=== PATIENT | male | born 1975 | race Caucasian/White ===

== ENCOUNTER 2017-03-10 18:33 | Emergency (ER) | payer MEDICARE, MEDICAID ==
[2017-03-10] MEDS ORDERED: Morphine Sulfate 2 MG/ML SYRINGE ONE ×2 (19:01→22:24)
[2017-03-10] MEDS ORDERED: Fentanyl 100 MCG/2 ML VIAL ONE (19:23)
[2017-03-10 20:26] LABS: #Lymphocytes 2.6 thou/uL (1.20-3.40); #Monocytes 1.5 thou/uL (0.11-0.59); #Neutrophils 6.4 thou/uL (1.40-6.50); %Basophils 0.4 % (0.0-1.0); %Eosinophils 0.3 % (0.0-10.0); %Lymphocytes 24.4 % (21.0-51.0); %Monocytes 14.4 % (0.0-10.0); Hematocrit 44.5 % (42.0-52.0); Mean Platelet Volume 9.4 fL (7.4-10.4); White Blood Cell (WBC) Count 10.5 thou/uL (4.8-10.8)
[2017-03-10 20:40] LABS: Bilirubin Negative (Negative); Blood, Urine Large (Negative); Glucose, Urine (Dipstick) Negative (Negative); Ketone, Urine Trace mg/dL (Negative); Nitrite Negative (Negative); Protein, Urine (Dipstick) 100 mg/dL (Neg-Trace)
[2017-03-10 20:41] LABS: Bacteria/HPF None Seen HPF (None Seen); Hyaline Casts/LPF 4-6 HYALINE CAST LPF (0-3 Hyaline); RBC/HPF GREATER THAN 50-TNTC HPF (0-3); Squamous Epithelial 0-3 HPF (0-3)
[2017-03-10 20:51] LABS: Oval Fat Bodies/HPF None Seen HPF (None Seen); Renal Epithelial 0-3 HPF (0-3); Sperm/HPF None Seen HPF (None Seen); Transitional Epithelial NONE SEEN HPF (0-3); Trichomonas/HPF None Seen HPF (None Seen); Yeast-All Forms None Seen HPF (None Seen)
[2017-03-10 21:01] LABS: ALT (SGPT) 16 U/L (8-55); AST (SGOT) 28 U/L (5-34); Alkaline Phosphatase 47 U/L (40-150); Anion Gap 14 mmol/L (10-20); BUN (Urea Nitrogen) 16 mg/dL (8.9-20.6); Bilirubin, Total 0.4 mg/dL (0.2-1.2); CK (CPK) 379 U/L (30-200); Calc. Creatinine Clearance 0 mL/min (70-130); Calcium 9.5 mg/dL (7.8-10.44); Carbon Dioxide 28 mmol/L (22-29); Chloride 101 mmol/L (98-107); Estimated GFR-MDRD Greater than 90; Globulin 3.1 g/dL (2.4-3.5); Lipase 36 U/L (8-78); Protein, Total 6.9 g/dL (6.0-8.3)
[2017-03-10] MEDS ORDERED: cefTRIAXone\\ROCEPHIN 1 GM VIAL ONE (22:36)
[2017-03-10] MEDS ORDERED: Sodium Chloride 0.9% 100 ML ONE (22:36)
--- OUTSIDE RECORDS SUMMARY | 2017-03-16 10:15 | XMS | Clinical Summary ---
:1975 Author Organization [facility] Address [address] [place] [address] Phone Care Team Providers Name Role Phone , Primary Care Provider Unavailable Allergies Not on File Current Medications Not on file Active Problems Not on file Social History Tobacco Use Types Packs/Day Years Used Date Never Assessed Sex Assigned at Date Recorded Not on file Last Filed Vital Signs Not on file Plan of Treatment Not on file Results Not on filefrom Last 3 Months
== END 2017-03-11 00:30 | disposition home or self-care (01) ==
LOC: ERS 18:33
DX: N39.0 Urinary tract infection, site not specified (principal); R19.09 Other intra-abdominal and pelvic swelling, mass and lump; F41.9 Anxiety disorder, unspecified; K59.00 Constipation, unspecified; M81.0 Age-related osteoporosis without current pathological fracture; L30.9 Dermatitis, unspecified; G80.9 Cerebral palsy, unspecified; Z79.899 Other long term (current) drug therapy
CPT/HCPCS: 80053; 81003; 81015; 82550; 83605; 83690; 85025; 87086; 93005; 96361; 96365; 96375; 96376; J0696; J2270; J3010; J7050

== ENCOUNTER 2017-05-04 06:51 | Day surgery (SDC) | payer MEDICARE, MEDICAID ==
[2017-05-03 14:46] VITALS: BMI 23.3
[2017-05-04] MEDS ORDERED: Ketorolac Tromethamine 30 MG/ML VIAL ONE (08:19)
[2017-05-04 09:10] LABS: #Eosinphils 0.2 thou/uL (0.0-0.7); #Lymphocytes 2.4 thou/uL (1.20-3.40); #Monocytes 0.7 thou/uL (0.11-0.59); #Neutrophils 2.1 thou/uL (1.40-6.50); %Basophils 0.6 % (0.0-1.0); %Lymphocytes 43.5 % (21.0-51.0); %Monocytes 12.8 % (0.0-10.0); Hematocrit 44.5 % (42.0-52.0); White Blood Cell (WBC) Count 5.4 thou/uL (4.8-10.8)
[2017-05-04 09:33] LABS: Anion Gap 9 mmol/L (10-20); BUN (Urea Nitrogen) 10 mg/dL (8.9-20.6); Calc. Creatinine Clearance 131 mL/min (70-130); Calcium 9.2 mg/dL (7.8-10.44); Carbon Dioxide 28 mmol/L (22-29); Chloride 104 mmol/L (98-107); Estimated GFR-MDRD Greater than 90
[2017-05-04] MEDS ORDERED: CEFAZOLIN/Water 2 GM/20 ML SYRINGE ONE (09:37)
[2017-05-04] MEDS ORDERED: Bupivacaine/Epinephrine 0.25% 30 ML VIAL ONE (10:08)
[2017-05-04] MEDS ORDERED: Fentanyl 100 MCG/2 ML VIAL ONE ×2 (10:34→13:37)
[2017-05-04] MEDS ORDERED: Midazolam HCl 2 mg/2 ml Vial ONE (10:51)
[2017-05-04] MEDS ORDERED: Levofloxacin 500 mg/D5W 100 ml Premix Bag ONE (11:12)
[2017-05-04] MEDS ORDERED: Ondansetron HCl/PF 4 MG/2 ML Vial ONE (16:15)
[2017-05-04] MEDS ORDERED: Glycopyrrolate 0.2 MG/ML 5 ML SYRINGE ONE (16:15)
[2017-05-04] MEDS ORDERED: Lidocaine 1% PF 5 ML VIAL ONE (16:15)
[2017-05-04] MEDS ORDERED: ePHEDrine/0.9% NaCl/PF SYRINGE 50 mg/10 ml ONE (16:15)
[2017-05-04] MEDS ORDERED: Propofol 200 MG/20 ML VIAL ONE (16:15)
[2017-05-04] MEDS ORDERED: PHENYLEPHRINE-NS 100 MCG/ML 10 ML SYRINGE ONE (16:15)
--- NOTE | 2017-05-04 20:02 | OP ---
DATE OF PROCEDURE: 05/04/2017 PREOPERATIVE DIAGNOSIS: Bilateral inguinal hernia. POSTOPERATIVE DIAGNOSIS: Bilateral inguinal hernia. OPERATION PERFORMED: Open bilateral direct inguinal hernia repair with large mesh patch and plug. SURGEON: Berhane Middleton M.D. ANESTHESIA: General endotracheal. INDICATIONS: The patient is a 41-year-old white male with severe mental retardation. He was recogni zed to have bilateral inguinal hernias and these are felt to be symptomatic. He was taken to the ope rating room at this time for repair. DESCRIPTION OF OPERATION: Informed consent was obtained from his mother. He was taken to the operat ing room where general endotracheal anesthesia was obtained with the patient in supine position. Vamshi ateral lower abdomen and groin were prepped with ChloraPrep and draped in sterile fashion. Local ane sthetic was infiltrated using 0.25% Marcaine with epinephrine. Oblique right inguinal incision was c reated and dissection was carried through skin, subcutaneous tissue down to the fascia. This was ope jose parallel to its fibers so as to open the external ring. Obvious medial bulge was identified cons istent with a direct inguinal hernia. The cord was inspected and there was found to be no evidence o f an indirect inguinal hernia. The hernia was dissected at its base and circumscribed with electroca utery. A large mesh plug was obtained and the apex secured to the apex of the hernia sac and the com plex was inverted in the preperitoneal space. The mesh was secured in place with several interrupted sutures of 2-0 Vicryl and imbricating sutures were placed. Mesh patch was obtained, trimmed was corrie ropriate size, and placed within the floor of the inguinal canal. This was then secured in place wit h several interrupted sutures of 2-0 Vicryl. The fascia was closed with 3-0 Vicryl, the remainder of the wound closed in layers with 3-0 and 4-0 Monocryl. Dermabond was placed externally. Attention was turned to the left side. A mirror image incision and dissection was carried out. The patient had identical findings on the left as on the right. A repair was carried out in the same fas hion using the same mesh and same sutures. The wound was then closed in similar fashion as well. De rmabond was again placed externally. There were no complications. Blood loss was negligible. The p atient tolerated the procedure well and was taken to recovery room in stable condition.
== END 2017-05-04 15:50 | disposition home or self-care (01) ==
LOC: SDC 06:51
PROVIDERS: ATTEND Specialist
PROC: 0YUA0JZ Supplement Bilateral Inguinal Region with Synthetic Substitute, Open Approach (ICD-10-PCS; principal; 2017-05-04)
DX: K40.20 Bilateral inguinal hernia, without obstruction or gangrene, not specified as recurrent (principal); F73 Profound intellectual disabilities; F50.89 Other specified eating disorder; G80.0 Spastic quadriplegic cerebral palsy; G40.909 Epilepsy, unspecified, not intractable, without status epilepticus; G47.33 Obstructive sleep apnea (adult) (pediatric); H47.619 Cortical blindness, unspecified side of brain; K59.09 Other constipation; K11.7 Disturbances of salivary secretion; M85.80 Other specified disorders of bone density and structure, unspecified site; R13.12 Dysphagia, oropharyngeal phase; R47.9 Unspecified speech disturbances; Z88.1 Allergy status to other antibiotic agents; Z79.899 Other long term (current) drug therapy; Z96.22 Myringotomy tube(s) status; Z96.89 Presence of other specified functional implants; Z98.890 Other specified postprocedural states; Z83.3 Family history of diabetes mellitus; Z82.49 Family history of ischemic heart disease and other diseases of the circulatory system
CPT/HCPCS: 80048; 85025; 96374; J0131; J1885; J1956; J2001; J2250; J2405; J2704; J3010

== ENCOUNTER 2017-05-05 21:04 | Inpatient (IN) | payer MEDICARE, MEDICAID ==
[2017-05-05] MEDS ORDERED: Azithromycin 500 MG VIAL ONE (21:50)
--- NOTE | 2017-05-05 22:20 | RAD ---
AP VIEW CHEST 05/05/17 HISTORY: Fever. Recurrent pneumonia. AP view chest is obtained. There appears to be a vagal stimulator in the left neck. Patchy areas of density seen in the left lung base concerning for an area of left lower lobe pneumoni a. The radiograph demonstrates suboptimal inspiratory effort. IMPRESSION: Area of patchy density possibly in the left lung base concerning for an area of left lower lobe pneum onia. POS: [facility]
[2017-05-05 22:29] LABS: Band 6 % (5-11); Hematocrit 43.3 % (42.0-52.0); Mean Platelet Volume 7.7 fL (7.4-10.4); Neutrophil 48 % (42-75); Red Blood Cell (RBC) Count 4.32 mill/uL (4.70-6.10); White Blood Cell (WBC) Count 8.5 thou/uL (4.8-10.8)
[2017-05-05 22:33] LABS: Lactic Acid - Sepsis 1.2 mmol/L (0.5-2.2)
[2017-05-05 22:38] LABS: ALT (SGPT) 13 U/L (8-55); AST (SGOT) 20 U/L (5-34); Alkaline Phosphatase 48 U/L (40-150); Anion Gap 9 mmol/L (10-20); BUN (Urea Nitrogen) 9 mg/dL (8.9-20.6); Bilirubin, Total 0.5 mg/dL (0.2-1.2); Calc. Creatinine Clearance 0 mL/min (70-130); Calcium 9.2 mg/dL (7.8-10.44); Carbon Dioxide 26 mmol/L (22-29); Chloride 105 mmol/L (98-107); Estimated GFR-MDRD Greater than 90; Globulin 2.9 g/dL (2.4-3.5); Protein, Total 6.4 g/dL (6.0-8.3)
[2017-05-05] MEDS ORDERED: Acetaminophen/Codeine 30-300mg Tablet ONE (23:22)
[2017-05-05] MEDS ORDERED: Ketorolac Tromethamine 30 MG/ML VIAL ONE (23:33)
[2017-05-06] MEDS ORDERED: Acetaminophen 325 MG TAB PO PRN (00:49)
[2017-05-06] MEDS ORDERED: Ondansetron ODT 4 MG TAB SL PRN (00:49)
[2017-05-06] MEDS ORDERED: Sodium Chloride 0.9% 1,000 ML IV SCH (00:49)
[2017-05-06] MEDS ORDERED: Ondansetron HCl/PF 4 MG/2 ML Vial IVP PRN ×2 (00:49→02:05)
[2017-05-06] MEDS ORDERED: Piperacillin/Tazobactam 3.375 GM in Sodium Chloride 0.9% 100 ML IVPB SCH (02:00)
[2017-05-06] MEDS ORDERED: Ondansetron ODT 4 MG TAB PO PRN (02:05)
[2017-05-06] MEDS ORDERED: Diabetic Tussin 200 MG/10 ML UDCUP PER TUBE PRN (02:05)
[2017-05-06] MEDS ORDERED: Diazepam 2.5 MG GEL PR PRN (02:05)
[2017-05-06] MEDS: Sodium Chloride 0.9% 1,000 ML IV SCH ×3 (03:25→22:05)
--- NOTE | 2017-05-06 04:53 | HP ---
PRIMARY CARE PHYSICIAN: Dr. Wright at [facility]. CHIEF COMPLAINT: Fever. HISTORY OF PRESENT ILLNESS: This is a 41-year-old male discharged from [facility] status post bilateral inguinal hernia repair on 05/04/2017. The patient was apparentl y sent back to [facility] developing a fever and cough. The patient was evaluated at [facility] in [place] with chest imaging concerning for bilateral pneumonia. The patient was noted with fever up to 101 degrees Fahrenheit and apparently hypoxic. The patient received IV Torado l, vancomycin, azithromycin, and intravenous normal saline. The patient was transferred to [facility] for further evaluation. History is obtained after review of the electronic medical record, ER reports as well as discussions with the patient's caregiver at the bedside as monie ent is nonverbal with severe cerebral palsy. PAST MEDICAL HISTORY: 1. Cerebral palsy. 2. Blindness. 3. Quadriparesis. 4. Chronic constipation. 5. Seizure disorder. 6. Gastroparesis. 7. Oropharyngeal dysphagia, status post PEG tube placement. 8. Status post bowel and bladder incontinence. 9. History of recurrent pneumonia. PAST SURGICAL HISTORY: 1. Status post PEG tube placement. 2. Status post bilateral inguinal hernia repair. CURRENT HOME MEDICATIONS: Based on review of the electronic medical records: 1. Dulcolax 5 mL per rectum every 3 days p.r.n. 2. Calcium carbonate 1500 mg per PEG tube b.i.d. 3. Vitamin D3 1000 units per PEG tube daily. 4. Clobazam 20 mg per PEG tube b.i.d. 5. Diazepam 15 mg per rectum p.r.n. seizures. 6. Keppra 1750 mg per PEG tube b.i.d. 7. Metoprolol tartrate 25 mg per PEG tube b.i.d. 8. Protonix 40 mg per PEG tube daily. 9. Docusate/senna 1 tablet per PEG tube b.i.d. 10. Flomax 0.4 mg per PEG tube at bedtime. 11. Valproate sodium 750 mg per PEG tube b.i.d. ALLERGIES: No known drug allergies. FAMILY HISTORY: No inheritable diseases after review of the electronic medical record otherwise unob tainable as the patient is nonverbal. SOCIAL HISTORY: The patient resides at [facility] over the last 8 years. Biological mothe r lives in [place], [place]. No current alcohol, tobacco or illicit drug use. Requires assistance with all activities of daily living. Dietary intake through tube feeds. Nonambulatory status. REVIEW OF SYSTEMS: Unobtainable. The patient is nonverbal. PHYSICAL EXAMINATION: VITAL SIGNS ON ADMISSION: Blood pressure 121/90, pulse 109, respiratory rate 20, temperature 98.9 wi th a T-max of 101.8 degrees Fahrenheit, respiratory rate 20, O2 saturation 94% on room air. GENERAL APPEARANCE: This is a 41-year-old male, agitated, fidgeting in mild distress. HEENT: Pupils are equal, round, and reactive to light and accommodation. Extraocular muscles are in tact. No scleral icterus, no conjunctival injection. Nares patent. OP is clear. NECK: Supple, no cervical adenopathy, no thyromegaly, no carotid bruits, no JVD appreciated. Cervic al spine with full active and passive range of motion. CHEST: Diminished breath sounds in the bases bilaterally. CARDIOVASCULAR: S1, S2, without noted murmur. ABDOMEN: Rounded, soft with PEG tube in place. Post-surgical changes consistent with bilateral ingu inal hernia repair noted in the groin region. EXTREMITIES: Warm and dry with fair turgor. Generalized muscle atrophy noted. Pulses palpable dist ally at the dorsalis pedis, posterior tibial, and popliteal arteries bilaterally. Capillary refill l ess than 2 seconds. NEUROLOGIC: Severe cerebral palsy. Does not follow directions. Moves upper extremities randomly. Some contractures noted. PERTINENT LABORATORY AND X-RAY FINDINGS: Basic metabolic profile within normal limits. Lactic acid level 1.2, calcium 9.2. LFTs within normal limits. Albumin 3.5. CBC showed a white blood cell coun t 8.5, hemoglobin 14, hematocrit 43, MCV 100, platelet count of 184 with 48% neutrophils and 6% bands . Portable chest x-ray dated 05/05/2017 showed patchy density in the left lung base, questionable ea rly pneumonia. ASSESSMENT AND PLAN: 1. Left lower lobe pneumonia, question of healthcare associated pneumonia. The patient will be admi tted to the medical floor. We will continue Levaquin 750 mg IV q.24h. with additional cefepime 2 gra ms IV q.12h. Continue general pulmonary supportive measures. Blood cultures x2 pending. 2. Status post bilateral inguinal hernia repair. Stable currently. Continue symptomatic and suppor tive measures. Consider General Surgery evaluation; however, no specific evidence of clinical decomp ensation regarding recent surgical intervention. 3. Cerebral palsy with quadriparesis, stable currently. Continue symptomatic and supportive measure s. A sitter for one-on-one observation. 4. Oropharyngeal dysphagia, status post PEG tube placement. We will continue PEG tube feeds and mon itor for tolerance. 5. Severe mental retardation. Continue supportive management. Sitter for 1 on 1 observation. 6. Seizure disorder. Continue outpatient anti-seizure regimen to include Keppra and valproate sodiu m. 7. Prophylaxis. Sequential compression devices while in bed. Protonix 40 mg per PEG tube daily. 8. Code status is full. Surrogate medical decision maker is the patient's mother.
[2017-05-06 05:02] LABS: Band 4 % (5-11); Hematocrit 38.4 % (42.0-52.0); Mean Platelet Volume 7.8 fL (7.4-10.4); Neutrophil 36 % (42-75); Red Blood Cell (RBC) Count 3.85 mill/uL (4.70-6.10); White Blood Cell (WBC) Count 7.3 thou/uL (4.8-10.8)
[2017-05-06 05:06] LABS: Anion Gap 10 mmol/L (10-20); BUN (Urea Nitrogen) 7 mg/dL (8.9-20.6); Calc. Creatinine Clearance 118 mL/min (70-130); Calcium 9.2 mg/dL (7.8-10.44); Carbon Dioxide 28 mmol/L (22-29); Chloride 111 mmol/L (98-107); Estimated GFR-MDRD Greater than 90
[2017-05-06] MEDS: Acetaminophen 500 MG TAB PER TUBE PRN ×2 (07:34→20:13)
[2017-05-06] MEDS: Metoprolol Tartrate 25 MG TAB PER TUBE SCH ×2 (07:34→20:09)
[2017-05-06] MEDS: Valproate Sodium 250 mg/5 ml UD Cup PER TUBE SCH ×2 (09:18→20:08)
[2017-05-06] MEDS: Glycopyrrolate 1 MG TAB PER TUBE SCH ×3 (09:19→20:19)
[2017-05-06] MEDS: levETIRAcetam 500 mg/5 ml Oral Solution PER TUBE SCH ×2 (10:37→20:08)
[2017-05-06] MEDS: Cefepime 2 GM in Syringe 12.5 ML SLOW IVP SCH ×2 (10:38→20:13)
--- NOTE | 2017-05-06 11:01 | PDOC.EVN ---
Event Note - Event Note Event Note: pt seen and examined on rounds. Sawyer lan this AM for fever, 1 day post op bilateral inguinal hernia repair. ecchymosis to both incision, no fluctuance , no increased heat. Lungs sound clear tome. CXR with possible LLL infiltrate. Pt here 05/04 as outpatient for surgery. back on 05/05 with infiltrate. NOT HCAP, will stop cefeime and continue levoflox alone WBC remains normal. Fever 101.1 earleir, afebrile now
[2017-05-06] MEDS: Tamsulosin HCl 0.4 MG CAP PO SCH (20:09)
[2017-05-06] MEDS: Lorazepam 2 MG/ML VIAL SLOW IVP PRN (20:14)
--- NOTE | 2017-05-06 21:27 | PRG ---
DATE OF SERVICE: 05/06/2017 SUBJECTIVE: Mr. Koenig is a 41-year-old profoundly retarded white male patient at [facility]. I performed bilateral inguinal hernia repair on him a couple of days ago. His surgery was unev entful. He had bilateral direct inguinal hernias. He apparently developed a fever at the school and presented to the emergency room late last night (on postoperative day #1). Laboratory studies were unremarkable. Cultures have been sent. White blood cell count is normal. He continues to have a fe luis today. He is of course unable to contribute to the history. PHYSICAL EXAMINATION: VITAL SIGNS: Early this morning with a temperature of 101.8 with a pulse of 138, temperature current ly is 98.7. ABDOMEN: Benign. His bilateral inguinal incisions are healing nicely. There is surrounding appropr iate ecchymosis. GENITOURINARY: Testes are descended and within normal limits. Bustamante catheter is in place currently. ASSESSMENT AND PLAN: In summary, I am uncertain why he has a fever. This is certainly not typical a fter hernia repair and even if he has a wound infection would be very atypical to develop problems wi thin 1 day of his surgery. He is on broad spectrum appropriate antibiotics. I would recommend ronnie nuing this while we search for a source of his fever. He was seemed to be beyond coincidence that wo uld be related to something other than his surgery, but right now there is certainly no evidence of s urgical infection. I will continue to follow him intermittently.
[2017-05-07] MEDS: Sodium Chloride 0.9% 1,000 ML IV SCH ×3 (00:10→20:09)
[2017-05-07 04:50] LABS: Anion Gap 12 mmol/L (10-20); BUN (Urea Nitrogen) 11 mg/dL (8.9-20.6); Calc. Creatinine Clearance 118 mL/min (70-130); Calcium 9.5 mg/dL (7.8-10.44); Carbon Dioxide 24 mmol/L (22-29); Chloride 107 mmol/L (98-107); Estimated GFR-MDRD Greater than 90
[2017-05-07 05:20] LABS: Band 2 % (5-11); Hematocrit 38.2 % (42.0-52.0); Mean Platelet Volume 8.4 fL (7.4-10.4); Metamyelocyte 1 % (0-0); Neutrophil 49 % (42-75); Reactive Lymphocytes 4 % (0-10); Red Blood Cell (RBC) Count 3.88 mill/uL (4.70-6.10); White Blood Cell (WBC) Count 8.9 thou/uL (4.8-10.8)
[2017-05-07] MEDS: Valproate Sodium 250 mg/5 ml UD Cup PER TUBE SCH ×2 (08:25→19:50)
[2017-05-07] MEDS: Metoprolol Tartrate 25 MG TAB PER TUBE SCH ×2 (08:25→19:50)
[2017-05-07] MEDS: Glycopyrrolate 1 MG TAB PER TUBE SCH ×3 (08:26→19:50)
--- NOTE | 2017-05-07 08:53 | PRG ---
DATE OF SERVICE: 05/07/2017 Mr. Koenig is hospital day #3 in evaluation and treatment of a fever. As he is profoundly mentally retarded, he has no indication of how he feels. He does not appear to be upset nor does he localize to any discomfort. PHYSICAL EXAMINATION: VITAL SIGNS: On examination today, he is maximum temperature was last night at 11:30 p.m. and he was 100.1. He is currently afebrile. Pulse remains elevated and is currently 116. Blood pressure is w ithin normal limits at 116/77. LUNGS: Clear to auscultation. ABDOMEN: Benign and nontender. Unfortunately, when I examined him, his ALEXANDR feeding tube had been re moved and was laying next to him on the bed. Apparently, the patient was able to access this and pul led it out sometime during the night. I was able to obtain a Bustamante catheter which I placed through t he feeding tube tract was no resistance entirely uneventfully. The balloon was inflated to 10 mL and pulled back snug against the abdominal wall. : His bilateral inguinal incisions remain soft, without induration or apparent tenderness. There is appropriate mild ecchymosis which is certainly not any worse. LABORATORY STUDIES: Hemoglobin this morning is 13.1, white blood cell count is 8.9, platelet count 1 86. Basic metabolic panel is entirely normal. ASSESSMENT: Patient with a fever. He is postop day 3 from bilateral inguinal hernia repair. There is no evidence that I can see of a wound infection and I am uncertain exactly why he has a fever. Quinton arriola is on broad spectrum antibiotics. I will reevaluate him on Wednesday05/10/2017. If surgery input is required over the weekend, please contact Dr. Ball who will be covering.
--- NOTE | 2017-05-07 09:49 | RAD ---
PORTABLE AP CHEST XRAY: DATE: 05/07/17. HISTORY: Followup fever, possible left lower lobe pneumonia COMPARISON: 05/05/17. FINDINGS: Again noted is a neural stimulating device overlying the left chest with a single lead overlying the left neck. There is prominent right convex scoliosis of the thoracic spine. Again noted is a mild p atchy density seen at the left lung base which may be related to pneumonia. There is minimal atelect asis at the right lung base. This exam is obtained in shallow depth of inspiration which accentuates the cardiac silhouette and bronchovascular markings. There has been no significant interval change from the prior exam. IMPRESSION: Stable patchy opacity seen at the left lung base which could be related to pneumonia. Followup to co mplete resolution is recommended. POS: [facility]
[2017-05-07] MEDS: levETIRAcetam 500 mg/5 ml Oral Solution PER TUBE SCH ×2 (10:39→19:51)
[2017-05-07] MEDS: Cefepime 2 GM in Syringe 12.5 ML SLOW IVP SCH ×2 (10:39→19:49)
--- NOTE | 2017-05-07 10:58 | PDOC.PN ---
- Subjective Encounter Start Date: 05/07/17 Encounter Start Time: 09:30 -: non-verbal, old records requested/rev Pt had a busy night. Pulled out two Ivs, pulled out his GButton - which we dont keep here. No F/c, luz marina N/V/D/C, no CP, no resp issues Appreciated Dr Emi felipe. He graciously came to see the patient. And I Agree, wounds look good and not as source of infection. - Objective Resuscitation Status: Resuscitation Status FULL:Full Resuscitation MAR Reviewed: Yes Vital Signs & Weight: Vital Signs (12 hours) Temp Pulse Resp BP Pulse Ox 05/07/17 08:00 98.7 F 116 H 18 116/77 93 L 05/07/17 05:06 98.8 F 103 H 20 131/79 92 L 05/06/17 23:53 103 H 05/06/17 23:51 98.3 F 117/67 05/06/17 23:34 100.1 F H 131 H 20 82/62 L 92 L Weight Admit Weight 124 lb 6.4 oz Weight 124 lb 6.4 oz I&O: 05/06/17 05/07/17 05/08/17 06:59 06:59 06:59 Intake Total 415 1100 Output Total 1500 800 Balance -1085 300 Result Diagrams: 05/07/17 03:32 05/07/17 03:32 Radiology Reviewed by me: Yes Phys Exam - Physical Examination Constitutional: NAD HEENT: PERRLA, moist MMs, sclera anicteric, oral pharynx no lesions Neck: no nodes, no JVD, supple, full ROM Respiratory: no wheezing, no rales, no rhonchi, clear to auscultation bilateral Cardiovascular: RRR, no significant murmur, no rub tachy Gastrointestinal: soft, non-tender, no distention, positive bowel sounds Musculoskeletal: no edema, pulses present Neurological: moves all 4 limbs Lymphatic: no nodes Skin: no rash, normal turgor, cap refill <2 seconds Dx/Plan (1) Status post hernia repair Code(s): Z98.890 - OTHER SPECIFIED POSTPROCEDURAL STATES; Z87.19 - PERSONAL HISTORY OF OTHER DISEASES OF THE DIGESTIVE SYSTEM Status: Acute Comment: POD 2. No S/Sx of wound infection. appropriate ecchycmosis, no fluctance. (2) Pneumonia Code(s): J18.9 - PNEUMONIA, UNSPECIFIED ORGANISM Status: Acute Qualifiers: Pneumonia type: due to unspecified organism Laterality: left Lung location: lower lobe of lung Qualified Code(s): J18.1 - Lobar pneumonia, unspecified organism Comment: repeat CXR pending. On levofloxacin. CAP, no HCAP, present on admit (3) Seizures Code(s): R56.9 - UNSPECIFIED CONVULSIONS Status: Acute (4) Cerebral palsy Code(s): G80.9 - CEREBRAL PALSY, UNSPECIFIED Status: Chronic Qualifiers: Cerebral palsy type: spastic quadriplegic Qualified Code(s): G80.0 - Spastic quadriplegic cerebral palsy (5) PEG (percutaneous endoscopic gastrostomy) adjustment/replacement/removal Code(s): Z43.1 - ENCOUNTER FOR ATTENTION TO GASTROSTOMY Status: Chronic (6) S/P Padmini fundoplication (with gastrostomy tube placement) Code(s): Z93.1 - GASTROSTOMY STATUS Status: Chronic - Plan cont current plan of care, continue antibiotics, mental health social worker * .
[2017-05-07] MEDS: Tamsulosin HCl 0.4 MG CAP PO SCH (19:51)
[2017-05-08] MEDS: Sodium Chloride 0.9% 1,000 ML IV SCH ×3 (02:44→22:25)
[2017-05-08] MEDS: Lorazepam 2 MG/ML VIAL SLOW IVP PRN (05:32)
[2017-05-08] MEDS: Cefepime 2 GM in Syringe 12.5 ML SLOW IVP SCH (08:38)
[2017-05-08] MEDS: Glycopyrrolate 1 MG TAB PER TUBE SCH ×3 (08:40→21:58)
[2017-05-08] MEDS: Metoprolol Tartrate 25 MG TAB PER TUBE SCH ×2 (08:42→21:58)
[2017-05-08] MEDS: Valproate Sodium 250 mg/5 ml UD Cup PER TUBE SCH ×2 (08:42→21:57)
[2017-05-08] MEDS: levETIRAcetam 500 mg/5 ml Oral Solution PER TUBE SCH ×2 (10:49→21:57)
--- NOTE | 2017-05-08 11:29 | PDOC.PN ---
- Subjective Encounter Start Date: 05/08/17 Encounter Start Time: 10:10 -: non-verbal resting comfortable. no acute events. makeshift GButton placed. No f/C, no N/ V/D/C ROS not able to be performed due to mental retardation - Objective Resuscitation Status: Resuscitation Status FULL:Full Resuscitation MAR Reviewed: Yes Vital Signs & Weight: Vital Signs (12 hours) Temp Pulse Resp BP Pulse Ox 05/08/17 08:00 98.7 F 111 H 20 05/08/17 07:21 98.7 F 111 H 20 116/71 98 Weight Admit Weight 124 lb 6.4 oz Weight 124 lb 6.4 oz I&O: 05/07/17 05/08/17 05/09/17 06:59 06:59 06:59 Intake Total 1100 620 678 Output Total 800 1800 Balance 300 -1180 678 Result Diagrams: 05/07/17 03:32 05/07/17 03:32 Radiology Reviewed by me: Yes EKG Reviewed by me: Yes Phys Exam - Physical Examination Constitutional: NAD HEENT: PERRLA, moist MMs, sclera anicteric, oral pharynx no lesions Neck: no nodes, no JVD, supple, full ROM Respiratory: no wheezing, no rales, no rhonchi, clear to auscultation bilateral Cardiovascular: RRR, no significant murmur normal rate when asleep, up to low 100s when awakened during exam Gastrointestinal: soft, non-tender, no distention, positive bowel sounds Musculoskeletal: no edema, pulses present Neurological: moves all 4 limbs Lymphatic: no nodes Skin: no rash, normal turgor, cap refill <2 seconds Dx/Plan (1) Pneumonia Code(s): J18.9 - PNEUMONIA, UNSPECIFIED ORGANISM Status: Acute Qualifiers: Pneumonia type: due to unspecified organism Laterality: left Lung location: lower lobe of lung Qualified Code(s): J18.1 - Lobar pneumonia, unspecified organism Comment: repeat CXR pending. On levofloxacin. CAP, no HCAP, present on admit. to oral abx per GButton (2) Status post hernia repair Code(s): Z98.890 - OTHER SPECIFIED POSTPROCEDURAL STATES; Z87.19 - PERSONAL HISTORY OF OTHER DISEASES OF THE DIGESTIVE SYSTEM Status: Acute Comment: POD 3. No S/Sx of wound infection. appropriate ecchycmosis, no fluctance. (3) Seizures Code(s): R56.9 - UNSPECIFIED CONVULSIONS Status: Chronic (4) Cerebral palsy Code(s): G80.9 - CEREBRAL PALSY, UNSPECIFIED Status: Chronic Qualifiers: Cerebral palsy type: spastic quadriplegic Qualified Code(s): G80.0 - Spastic quadriplegic cerebral palsy (5) PEG (percutaneous endoscopic gastrostomy) adjustment/replacement/removal Code(s): Z43.1 - ENCOUNTER FOR ATTENTION TO GASTROSTOMY Status: Chronic (6) S/P Padmini fundoplication (with gastrostomy tube placement) Code(s): Z93.1 - GASTROSTOMY STATUS Status: Chronic - Plan cont current plan of care, plan discussed w/ family, continue antibiotics, psych social worker * .
[2017-05-08] MEDS: Acetaminophen 500 MG TAB PER TUBE PRN (18:23)
[2017-05-08] MEDS: Tamsulosin HCl 0.4 MG CAP PO SCH (21:58)
[2017-05-09] MEDS ORDERED: Levofloxacin 250 MG/10 ML PER TUBE SCH (09:00)
[2017-05-09] MEDS: Metoprolol Tartrate 25 MG TAB PER TUBE SCH ×2 (09:07→21:47)
[2017-05-09] MEDS: Glycopyrrolate 1 MG TAB PER TUBE SCH ×3 (09:07→21:47)
[2017-05-09] MEDS: levETIRAcetam 500 mg/5 ml Oral Solution PER TUBE SCH ×2 (09:08→21:48)
[2017-05-09] MEDS: Valproate Sodium 250 mg/5 ml UD Cup PER TUBE SCH ×2 (09:08→21:49)
[2017-05-09] MEDS: Sodium Chloride 0.9% 1,000 ML IV SCH ×2 (09:25→21:20)
--- NOTE | 2017-05-09 12:07 | PDOC.PN ---
- Subjective Encounter Start Date: 05/09/17 Encounter Start Time: 09:55 -: non-verbal Pt much more active today, no F/C, no N/V/D/C. Caregivers at [facility] say he is backto baseline. Off oxygen. Ayush button cam out, we are using a matthew in the stoma until Steinrudi can replace the button tomorrow. Medically ready for discharge when button replaced. - Objective Resuscitation Status: Resuscitation Status FULL:Full Resuscitation MAR Reviewed: Yes Vital Signs & Weight: Vital Signs (12 hours) Temp Pulse Resp BP Pulse Ox 05/09/17 11:05 97.8 F 103 H 16 105/67 95 05/09/17 09:09 125/74 05/09/17 08:00 98.2 F 77 20 05/09/17 07:35 98.2 F 77 96 05/09/17 03:00 96 Weight Admit Weight 124 lb 6.4 oz Weight 124 lb 6.4 oz I&O: 05/08/17 05/09/17 05/10/17 06:59 06:59 06:59 Intake Total 620 3176 358 Output Total 1800 1650 Balance -1180 1526 358 Result Diagrams: 05/07/17 03:32 05/07/17 03:32 Phys Exam - Physical Examination Constitutional: NAD HEENT: PERRLA, moist MMs, sclera anicteric, oral pharynx no lesions Neck: no nodes, no JVD, supple, full ROM Respiratory: no wheezing, no rales, no rhonchi, clear to auscultation bilateral Cardiovascular: RRR, no significant murmur, no rub Gastrointestinal: soft, non-tender, no distention, positive bowel sounds gastrostomy tube site C/d/I Musculoskeletal: no edema, pulses present Neurological: non-focal, normal sensation, moves all 4 limbs Lymphatic: no nodes Deviation from normal: mentally slow, at baseline Skin: no rash, normal turgor, cap refill <2 seconds Dx/Plan (1) Pneumonia Code(s): J18.9 - PNEUMONIA, UNSPECIFIED ORGANISM Status: Acute Qualifiers: Pneumonia type: due to unspecified organism Laterality: left Lung location: lower lobe of lung Qualified Code(s): J18.1 - Lobar pneumonia, unspecified organism Comment: repeat CXR pending. On levofloxacin. CAP, no HCAP, present on admit. to oral abx per Moisés (2) Status post hernia repair Code(s): Z98.890 - OTHER SPECIFIED POSTPROCEDURAL STATES; Z87.19 - PERSONAL HISTORY OF OTHER DISEASES OF THE DIGESTIVE SYSTEM Status: Acute Comment: POD 3. No S/Sx of wound infection. appropriate ecchycmosis, no fluctance. (3) Seizures Code(s): R56.9 - UNSPECIFIED CONVULSIONS Status: Chronic (4) Cerebral palsy Code(s): G80.9 - CEREBRAL PALSY, UNSPECIFIED Status: Chronic Qualifiers: Cerebral palsy type: spastic quadriplegic Qualified Code(s): G80.0 - Spastic quadriplegic cerebral palsy (5) PEG (percutaneous endoscopic gastrostomy) adjustment/replacement/removal Code(s): Z43.1 - ENCOUNTER FOR ATTENTION TO GASTROSTOMY Status: Chronic (6) S/P Padmini fundoplication (with gastrostomy tube placement) Code(s): Z93.1 - GASTROSTOMY STATUS Status: Chronic - Plan * .
[2017-05-09] MEDS: Tamsulosin HCl 0.4 MG CAP PO SCH (21:47)
[2017-05-10] MEDS: Sodium Chloride 0.9% 1,000 ML IV SCH ×2 (06:30→16:04)
[2017-05-10 07:53] VITALS: BP 110/55; TEMP 97.6
[2017-05-10] MEDS: Glycopyrrolate 1 MG TAB PER TUBE SCH ×2 (10:20→14:41)
[2017-05-10] MEDS: Valproate Sodium 250 mg/5 ml UD Cup PER TUBE SCH (10:20)
[2017-05-10] MEDS: Metoprolol Tartrate 25 MG TAB PER TUBE SCH (10:28)
[2017-05-10] MEDS: levETIRAcetam 500 mg/5 ml Oral Solution PER TUBE SCH (11:08)
--- NOTE | 2017-05-10 11:13 | DIS ---
PRIMARY CARE PHYSICIAN: [facility] DATE OF DISCHARGE: 05/10/2017 DISCHARGE DIAGNOSES: 1. Community-acquired pneumonia. 2. Acute hypoxic respiratory failure. 3. Status post recent bilateral inguinal hernia repair. 4. Percutaneous gastrostomy tube malfunction. 5. History of seizures. 6. History of cerebral palsy. CONSULTATIONS: General Surgery, Dr. Berhane Middleton PROCEDURES: Replacement of percutaneous Lyle-Leal button. HOSPITAL COURSE: Mr. Koenig is a 41-year-old male with history of cerebral palsy and seizure disord er who is a resident of [facility] who was sent here for acute shortness of breath and hypo [place]. He was seen and evaluated in the emergency department. He was noted to have a bilateral lower lobe a nd right upper lobe infiltrate, temperature was 101.8 and pulse 109. He was subsequently admitted to our service. HOSPITAL COURSE: The patient was seen and examined by Dr. Shaffer. He was started on levofloxacin and cefepime. He was placed on the medical floor on the regular medications. Overnight from 05/06/2017 to 05/07/2017 the patient remained stable. He was weaned off oxygen. I co ntacted Dr. Middleton to let him know of the admission, he did come by and evaluate and we both agreed that his recent surgical wounds were completely intact and looked uninfected. He had no further feve r by the 05/07/2017, labs remained normal, and he was tolerating the antibiotics. Unfortunately, his gastrostomy tube/Lyle-Leal button came out and Dr. Middleton did not have one on hand and so we request one from the [facility] to be sent here. By 05/08/2017 the patient was feeling better, was stable for discharge, however, we still did not hav e the Lyle-Leal button replaced. He was kept overnight 05/09/2017 to 05/10/2017 and today it was repla rafaela and was stable for discharge. PHYSICAL EXAMINATION: The patient was seen and examined on the day of discharge. Discharge plan an d disposition were discussed with the caregiver at the bedside face to face. DISCHARGE MEDICATIONS: Resume his home medications. Levofloxacin 500 mg per tube daily for 7 more d ays was added. Otherwise, we will continue his valproate, his Flomax, senna sodium/docusate, Protoni x, metoprolol tartrate, Keppra, glycopyrrolate, Valium, Onfi b.i.d., cholecalciferol, chlorhexidine, calcium carbonate, bisacodyl, and Tylenol #3. FOLLOWUP APPOINTMENTS: Primary care physician within a week. DISCHARGE DIET: Tube feeds, Jevity 1.5 and 1-1/2 cans t.i.d. DISCHARGE ACTIVITY: As tolerated. DISCHARGE CONDITION: Good. DISPOSITION: He is being discharged to home via transport from the [facility].
--- NOTE | 2017-05-10 11:20 | PRG ---
DATE OF SERVICE: 05/10/2017 SUBJECTIVE: Mr. Koenig is now postoperative day #6 from his bilateral inguinal hernia repair. He w as hospitalized here on the evening of postoperative day #1 with fever, although he never developed a leukocytosis. His surgical sites had no definite evidence of infection. The patient was empiricall y placed on antibiotics, which he continues to receive. He has apparently had an uneventful weekend. PHYSICAL EXAMINATION: VITAL SIGNS: Afebrile with pulse of 84-94, blood pressure is 110/55. He has been tolerating his tub e feeds well and he has had good urine output, although he still has a Bustamante catheter in place. LUNGS: Clear to auscultation. ABDOMEN: Soft, nontender. He still has a Bustamante catheter in his gastrostomy tube site in the left up per abdomen. Bilateral inguinal hernia incisions are healing appropriately with Dermabond still inta ct. LABORATORY STUDIES: Showed a normal white blood cell count with hemoglobin of 13 on 05/07/2017 and t his has not been repeated. Patient had removed his ALEXANDR feeding tube a couple days ago. Another one replacement tube has been ob tained and at bedside, I uneventfully removed his indwelling Bustamante catheter and places a ALEXANDR feeding tube. He has a well-developed tract and this is safety use immediately. In summary, he appears to be doing well from a surgical standpoint. I am uncertain why he had this f ever that he had or if it was related to his surgery. The surgical site incisions are healing nicely without erythema or tenderness. He appears to be stable for discharge from a surgical standpoint. I would like to see him back in 2-3 weeks for routine followup visit.
--- NOTE | 2017-05-14 07:53 | PQF ---
RUSS CRISJASEN MOE [id number] CLINICAL DOCUMENTATION CLARIFICATION FORM: POST DISCHARGE Addendum to original discharge summary date: ____ Late entry note date: __ DATE: 05/14/2017 ATTN: DR. MORELOS Please exercise your independent, professional judgment in responding to the clarification form. Clinical indicators are provided on the bottom of this form for your review Please check appropriate box(s): [ x ] Acute Respiratory Failure: [ x ] with Hypoxia[ ] with Hypercapnia [ ] Acute On Chronic Respiratory Failure: [ ] with Hypoxia [ ] with Hypercapnia [ x ] Acute Respiratory Failure due to: (etiology) LLL pneumonia, POA [ ] Acute Respiratory Insufficiency following (if applicable): [ ] trauma [ ] surgery [ ] Chronic Respiratory Failure only [ ] with Hypoxia [ ] with Hypercapnia [ ] Hypoxia [ ] Other diagnosis [ ] Unable to determine In addition, please specify: Present on Admission (POA): [ x ] Yes [ ] No [ ] Unable to determine For continuity of documentation, please document condition throughout progress notes and discharge summary. Thank You. CLINICAL INDICATORS - SIGNS / SYMPTOMS / LABS VITALS: BP 109/72, P 108, RESP 13, TEMP 100.0, O2 SAT: 88 ON ROOM AIR H&P - FEVER, HYPOXIC LEFT LOWER LOBE PNEUMONIA PN - FEVER, PNEUMONIA DS - ACUTE HYPOXIC RESPIRATORY FAILURE RISK FACTORS PNEUMONIA RECENT SURGERY TREATMENTS: Serial CXR ABGs Antibiotics IV (This form is maintained as a part of the permanent medical record) 2014 [employer]. All Rights Reserved Geovanna Elizabeth, [employer], [employer] [email or web address] [phone] SUJEY
== END 2017-05-10 16:32 | disposition home or self-care (01) | DRG 193 ==
LOC: ERS 21:04 → T4-A 22:10
PROVIDERS: ADMIT Family Medicine; ATTEND Family Medicine
PROC: 0D20XUZ Change Feeding Device in Upper Intestinal Tract, External Approach (ICD-10-PCS; principal; 2017-05-07)
DX: J18.9 Pneumonia, unspecified organism (principal); J96.01 Acute respiratory failure with hypoxia; G80.0 Spastic quadriplegic cerebral palsy; F72 Severe intellectual disabilities; K94.23 Gastrostomy malfunction; R13.12 Dysphagia, oropharyngeal phase; G40.909 Epilepsy, unspecified, not intractable, without status epilepticus; H54.7 Unspecified visual loss; Y83.3 Surgical operation with formation of external stoma as the cause of abnormal reaction of the patient, or of later complication, without mention of misadventure at the time of the procedure; Z98.890 Other specified postprocedural states
CPT/HCPCS: 36415; 71010; 80048; 80053; 83605; 85007; 85025; 85027; 87040; 87086; 96365; 96367; 96374; 96375; C1781; J0131; J0456; J0692; J1885; J1956; J2001; J2060; J2250; J2405; J2543; J2704; J3010; J3370; J7050

== ENCOUNTER 2019-11-18 21:25 | Inpatient (IN) | payer MEDICARE, MEDICAID ==
[2019-11-18] MEDS ORDERED: levETIRAcetam 500 MG/100 ML PREMIX BAG ONE (21:40)
[2019-11-18 22:22] LABS: #Lymphocytes 1.1 thou/uL (1.20-3.40); #Monocytes 0.8 thou/uL (0.11-0.59); #Neutrophils 8.7 thou/uL (1.40-6.50); %Basophils 0.3 % (0.0-1.0); %Eosinophils 0.2 % (0.0-10.0); %Lymphocytes 9.9 % (21.0-51.0); %Monocytes 7.8 % (0.0-10.0); %Neutrophils 81.9 % (42.0-75.0); Hemoglobin 15.9 g/dL (14.0-18.0); Mean Corpuscular HGB CONC 34.6 g/dL (32.0-36.0); Mean Corpuscular Hemoglobin 33.2 pg (27.0-31.0); Mean Corpuscular Volume 96.1 fL (78.0-98.0); Platelet Count 202 thou/uL (130-400); RBC Distribution Width 11.6 % (11.5-14.5); White Blood Cell (WBC) Count 10.7 thou/uL (4.8-10.8)
--- NOTE | 2019-11-18 22:22 | RAD ---
Chest AP view INDICATION: Dyspnea COMPARISON: May 07, 2017 FINDINGS: Lungs: There is bibasilar atelectasis. There is hypoventilation. Cardiac silhouette: Heart size accentuated by exam technique and diminished inspiration. Pulmonary vasculature: Normal Pleural spaces: No pleural effusion or pneumothorax is demonstrated. Upper abdomen: No abnormality seen. Osseous structures: There is prominent thoracic scoliosis. Additional findings: There is a carotid body stimulator overlying the left chest wall. IMPRESSION: Bibasilar atelectasis and hypoventilation.
[2019-11-18] MEDS ORDERED: Lorazepam 2 MG/ML VIAL ONE (22:35)
[2019-11-18] MEDS ORDERED: Vancomycin 1 GM/200 ML BAG ONE (22:42)
[2019-11-18] MEDS ORDERED: Cefepime 2 GM VIAL ONE (22:42)
[2019-11-18 22:45] LABS: ALT (SGPT) 12 U/L (8-55); AST (SGOT) 16 U/L (5-34); Albumin 4.3 g/dL (3.5-5.0); Alkaline Phosphatase 47 U/L (40-110); Anion Gap 13 mmol/L (10-20); BUN (Urea Nitrogen) 11 mg/dL (8.9-20.6); Bilirubin, Total 0.3 mg/dL (0.2-1.2); Calc. Creatinine Clearance 0 mL/min (70-130); Carbon Dioxide 23 mmol/L (22-29); Chloride 103 mmol/L (98-107); Estimated GFR-MDRD Greater than 90; Globulin 3.1 g/dL (2.4-3.5); Glucose 152 mg/dL (70-105); Protein, Total 7.4 g/dL (6.0-8.3); Sodium 135 mmol/L (136-145)
[2019-11-19 01:21] LABS: Lactic Acid 2.3 mmol/L (0.5-2.2)
[2019-11-19] MEDS ORDERED: Sodium Chloride 0.9% 1,000 ML IV SCH (01:46)
[2019-11-19 02:02] VITALS: BMI 22.1
[2019-11-19] MEDS ORDERED: HYDROcodone/Acetaminophen 5/325 mg Tablet PO PRN (02:19)
[2019-11-19] MEDS ORDERED: cloNIDine 0.1 MG TAB PO PRN (02:19)
[2019-11-19] MEDS ORDERED: Ondansetron PF 4 MG/2 ML Vial IVP PRN (02:19)
[2019-11-19] MEDS ORDERED: Guaifenesin DM 100-10/5 ML UDCUP PO PRN (02:19)
[2019-11-19] MEDS ORDERED: Morphine 2 MG/ML SYRINGE SLOW IVP PRN (02:19)
[2019-11-19] MEDS ORDERED: Labetalol HCl 100 MG/20 ML VIAL SLOW IVP PRN (02:19)
[2019-11-19] MEDS ORDERED: hydrALAZINE 20 MG/ML VIAL SLOW IVP PRN (02:19)
[2019-11-19] MEDS ORDERED: Promethazine HCl 12.5 MG in Sodium Chloride 0.9% 50 ML IVPB PRN (02:19)
[2019-11-19] MEDS ORDERED: Bisacodyl 5 MG TAB PO PRN (02:21)
[2019-11-19] MEDS ORDERED: Bisacodyl 10 MG SUPP PR PRN (02:21)
[2019-11-19] MEDS ORDERED: Senokot S 8.6-50 MG TAB PO PRN (02:21)
--- NOTE | 2019-11-19 02:25 | PDOC.HHP ---
Hospitalist HPI - History of Present Illness Seizure History of Present Illness: Patient is a 44 year old male with PMH developmental disability who presents from halfway for intractable seizures, patinet normally stable on valproic acid, keppra however this afternoon began to have frequent seizure, gold wheel blocker and polisher at bedside denies other changes such as SOB, distress, chest pain. She reports seizure as not tonic clonic but partial and with L sided preference lasting several minutes. Patient has a PEG tube and frequent aspiration episodes. In ED , patient noted to be tachypneic, 28 breaths per minute, tachycardic to 110. Audible rales. saturating 97% on RA. CXR revealed bibasilar infiltrates, given abx for presumed aspiration pneumonia, patient to be admitted for further workup and management. Hospitalist ROS - Review of Systems ROS unobtainable: due to mental status - Medication Medications: famotidine oral Sat Nov 18, 2019 22:04 Adal, CHRISTIANA, Nazish tablet : Strength - 20 mg : ORAL Patient Dose: Unknown. glycopyrrolate oral Sat Nov 18, 2019 22:05 Adal, CHRISTIANA, Nazish tablet : Strength - 2 mg : ORAL Patient Dose: Unknown. levETIRAcetam oral Sat Nov 18, 2019 22:05 Adal, CHRISTIANA, Nazish tablet : Strength - 1,000 mg : ORAL Patient Dose: Unknown. levETIRAcetam oral Sat Nov 18, 2019 22:05 Adal, CHRISTIANA, Nazish tablet : Strength - 750 mg : ORAL Patient Dose: Unknown. metoprolol tartrate oral Sat Nov 18, 2019 22:06 Adal, CHRISTIANA, Nazish tablet : Strength - 37.5 mg : ORAL Patient Dose: Unknown. valproic acid Sat Nov 18, 2019 22:07 Adal, CHRISTIANA, Nazish capsule : Strength - 250 mg : ORAL Patient Dose: 750 mg. finasteride Sat Nov 18, 2019 22:07 Adal, CHRISTIANA, Nazish tablet : Strength - 5 mg : ORAL Patient Dose: Unknown. diazePAM rectal Sat Nov 18, 2019 22:07 Adal, CHRISTIANA, Nazish kit : Strength - 12.5 mg-15 mg-17.5 mg-20 mg : RECTAL Patient Dose: Unknown. Prolia Sat Nov 18, 2019 22:08 Adal, CHRISTIANA, Nazish syringe : Strength - 60 mg/mL : [1 mL(s)] : SUBCUTANEOUS Patient Dose: Unknown. doxycycline hyclate oral Sat Nov 18, 2019 22:08 CHRISTIANA Galeas Nazish capsule : Strength - 100 mg : ORAL Patient Dose: Unknown. Hospitalist History - Past Medical History Other Medical History: Flu vaccine up to date, Tetanus immunization up to date, Pneumococcal vaccine up to date, CEREBRAL PALSY, BLINDNESS, SPASTIC QUADRIPARESIS, CONSTIPATION, SEIZURE, OSTEOPENIA, GASTROPARESIS, ALLERGIC RHINITIS, DYSPHAGIA, BOWEL/BLADDER INCONTINENCE,, Flu vaccine up to date. hip subluxation, sastic quadriparesis, hypersalivation, osteoporosis, eczema, oralpharyngeal dysphagia, h pylori, tibial fracture, COLITIS, FREQUENT UTIs. - Past Surgical History Other Surgical History: GTUBE. - Family History Family History: reports: no pertinent history - Social History Other Social History: Lives in commercial [facility] care facility, Name of institution [facility]. - Exam General - other findings: altered mental status Eye: PERRL, anicteric sclera ENT: normocephalic atraumatic, no oropharyngeal lesions, moist mucosa Neck: supple, symmetric, no JVD, no thyromegaly, no lymphadenopathy, no carotid bruit Heart: no murmur, no gallops, no rubs, normal peripheral pulses Heart - other findings: tachycardic, regular Respiratory - other findings: +rales, tachypnea, no increased work of breathing Gastrointestinal: soft, non-tender, non-distended, normal bowel sounds, no palpable masses, no hepatomegaly, no splenomegaly, no bruit Extremities: no cyanosis, no clubbing, no edema Skin: normal turgor, no lesions, no rashes Neurological - other findings: altered mental status, moving all extremities Musculoskeletal: normal tone, no muscle wasting Psychiatric - other findings: unable to evaluate Hospitalist Results - Labs Result Diagrams: 11/18/19 22:11 11/18/19 22:11 Lab results: WBC 10.7 thou/uL (4.8-10.8) 11/18/19 22:11 Hgb 15.9 g/dL (14.0-18.0) 11/18/19 22:11 Hct 46.1 % (42.0-52.0) 11/18/19 22:11 MCV 96.1 fL (78.0-98.0) 11/18/19 22:11 Plt Count 202 thou/uL (130-400) 11/18/19 22:11 Neutrophils % 81.9 % (42.0-75.0) H 11/18/19 22:11 Sodium 135 mmol/L (136-145) L 11/18/19 22:11 Potassium 4.0 mmol/L (3.5-5.1) 11/18/19 22:11 Chloride 103 mmol/L (98-107) 11/18/19 22:11 Carbon Dioxide 23 mmol/L (22-29) 11/18/19 22:11 BUN 11 mg/dL (8.9-20.6) 11/18/19 22:11 Creatinine 0.66 mg/dL (0.7-1.3) L 11/18/19 22:11 Glucose 152 mg/dL (70-105) H 11/18/19 22:11 Lactic Acid 2.3 mmol/L (0.5-2.2) H 11/19/19 00:56 Calcium 9.0 mg/dL (7.8-10.44) 11/18/19 22:11 Total Bilirubin 0.3 mg/dL (0.2-1.2) 11/18/19 22:11 AST 16 U/L (5-34) 11/18/19 22:11 ALT 12 U/L (8-55) 11/18/19 22:11 Alkaline Phosphatase 47 U/L (40-110) 11/18/19 22:11 Serum Total Protein 7.4 g/dL (6.0-8.3) 11/18/19 22:11 Albumin 4.3 g/dL (3.5-5.0) 11/18/19 22:11 Additional comment: VITAL SIGNS Sat Nov 18, 2019 21:27 Adal, CHRISTIANA, Paulette BP: 148/99, Pulse: 111, Resp: 28, Pain: UTR, O2 Sat: 97 on (Room Air) Hospitalist H&P A/P - Plan Plan: Patient is a 44 year old male with PMH developmental disability who presents from halfway for intractable seizures. # acute and chronic seizure disorder w/ intractable seizure - suspect seizure threshold lower than previous due to infection/aspiration pneumonia, has chronic seizures and developmentally disabled. has vagal stimulator last changed in 2013. uncontrolled seizure disorder since age 10. had similar admission with seizures and aspiration pneumonia in 2015. 7 seizures in last year, follows with neurology - admit to neurology unit - IV keppra and valproate - consult neurology - PRN ativan ordered - seizure precautions - treat infection as below # aspiration pneumonia - bilateral on imaging, has PEG tube and history of pneumonia - empiric zosyn - hold PO/PEG meds for now - IVF - monitor clinically # sepsis due to pnuemonia - treat as above # developmental disability - noted # sinus tachycardia - suspect due to sepsis, EKG 112 bpm sinus tachycardia, no acute ST changes DVT ppx GI ppx Code: discussed with gold wheel blocker and polisher, no advanced directive
[2019-11-19] MEDS: Piperacillin/Tazobactam 3.375 GM in Sodium Chloride 0.9% 100 ML IVPB SCH ×4 (03:38→22:51)
[2019-11-19] MEDS: Valproate Sodium 750 MG in Sodium Chloride 0.9% 100 ML IVPB SCH (04:12)
[2019-11-19] MEDS ORDERED: Acetaminophen 650 MG Suppository PR SCH (04:45)
[2019-11-19 04:48] LABS: #Lymphocytes 1.1 thou/uL (1.20-3.40); #Neutrophils 8.5 thou/uL (1.40-6.50); %Basophils 0.1 % (0.0-1.0); %Eosinophils 0.2 % (0.0-10.0); %Lymphocytes 10.7 % (21.0-51.0); %Monocytes 9.1 % (0.0-10.0); %Neutrophils 79.9 % (42.0-75.0); Hemoglobin 14.9 g/dL (14.0-18.0); Mean Corpuscular HGB CONC 34.5 g/dL (32.0-36.0); Mean Corpuscular Hemoglobin 33.3 pg (27.0-31.0); Mean Corpuscular Volume 96.7 fL (78.0-98.0); Mean Platelet Volume 8.3 fL (7.4-10.4); Platelet Count 211 thou/uL (130-400); RBC Distribution Width 11.6 % (11.5-14.5); Red Blood Cell (RBC) Count 4.47 mill/uL (4.70-6.10); White Blood Cell (WBC) Count 10.6 thou/uL (4.8-10.8)
[2019-11-19 05:17] LABS: Anion Gap 19 mmol/L (10-20); BUN (Urea Nitrogen) 6 mg/dL (8.9-20.6); Calc. Creatinine Clearance 130 mL/min (70-130); Calcium 8.2 mg/dL (7.8-10.44); Carbon Dioxide 19 mmol/L (22-29); Chloride 102 mmol/L (98-107); Estimated GFR-MDRD Greater than 90; Glucose 116 mg/dL (70-105); Potassium 3.6 mmol/L (3.5-5.1); Sodium 136 mmol/L (136-145)
[2019-11-19] MEDS: Lorazepam 2 MG/ML VIAL SLOW IVP PRN ×4 (05:20→23:21)
[2019-11-19] MEDS ORDERED: Sodium Chloride 0.9% 500 ML IV SCH (08:30)
[2019-11-19] MEDS ORDERED: Famotidine 20 MG TAB PO SCH (09:00)
[2019-11-19] MEDS ORDERED: levETIRAcetam In NaCl (Iso-Os) 1,000 MG in Premix Bag 1 BAG IVPB SCH (09:00)
[2019-11-19] MEDS: Famotidine/PF 20 mg/2ml Vial SLOW IVP SCH (09:20)
[2019-11-19] MEDS: Enoxaparin Sodium 40 MG/0.4 ML SYRINGE SC SCH (09:21)
[2019-11-19] MEDS: Sodium Chloride 0.9% 1,000 ML IV SCH ×2 (10:07→16:49)
--- NOTE | 2019-11-19 10:29 | EKG ---
Test Reason : Blood Pressure : / mmHG Vent. Rate : 112 BPM Atrial Rate : 112 BPM P-R Int : 126 ms QRS Dur : 096 ms QT Int : 308 ms P-R-T Axes : 019 021 057 degrees QTc Int : 420 ms Sinus tachycardia Nonspecific ST and T wave abnormality Abnormal ECG Confirmed by KARLOS MILLS, SHAUNNA Katz ([id number]), editor news SHEILA CRUZ ([id number]) on 11/19/2019 10:28:51 AM Referred By: Confirmed By:SHAUNNA EVERETT MD
[2019-11-19] MEDS ORDERED: Acetaminophen 650 MG Suppository PR PRN (11:20)
[2019-11-19 12:13] LABS: Troponin I 0.031 ng/mL (< 0.028)
[2019-11-19 12:42] LABS: Bacteria/HPF None Seen HPF (None Seen); Bilirubin Negative (Negative); Blood, Urine Negative (Negative); Clarity Clear (Clear); Glucose, Urine (Dipstick) 150 mg/dL (Negative); Leukocyte Negative Leu/uL (Negative); Nitrite Negative (Negative); Protein, Urine (Dipstick) Negative (Neg-Trace); RBC/HPF 0-3 HPF (0-3); Squamous Epithelial None Seen HPF (0-3); Urobilinogen Normal mg/dL (Less than 2); WBC/HPF 0-3 HPF (0-3)
[2019-11-19 12:50] LABS: Urine Culture Reflex No No
[2019-11-19] MEDS: Polyethylene Glycol 3350 17 GM Packet PO SCH (13:15)
--- NOTE | 2019-11-19 20:44 | CT ---
CT Brain WO Con: 11/19/2019 6:00 PM CLINICAL HISTORY: New onset altered mental status. IMAGING TECHNIQUE: Multiple CT images were obtained of the brain without IV contrast. COMPARISON: Prior CT of the brain dated December 23, 2015 FINDINGS: BRAIN: Evidence of acute infarct: None. Evidence of chronic ischemic change:There is stable mild chronic small vessel white matter ischemic c hange that appears stable to the prior. Evidence of intracranial hemorrhage: None. Evidence of midline shift: Third ventricle and septum pellucidum are midline. Ventricles: Normal. No hydrocephalus. SKULL: Intact. VISUALIZED PARANASAL SINUSES: Clear. MASTOID AIR CELLS: Clear. EXTRACRANIAL SOFT TISSUES: Normal. IMPRESSION: No acute intracranial abnormality.
[2019-11-19] MEDS ORDERED: levETIRAcetam In NaCl (Iso-Os) 1,500 MG in Premix Bag 1 BAG IVPB SCH (21:00)
[2019-11-19] MEDS: levETIRAcetam 1,750 MG in Sodium Chloride 0.9% 100 ML IVPB SCH (21:18)
[2019-11-19] MEDS: Tamsulosin HCl 0.4 MG CAP PO SCH (22:54)
[2019-11-20] MEDS: Lorazepam 2 MG/ML VIAL SLOW IVP PRN ×2 (00:22→13:53)
[2019-11-20] MEDS ORDERED: Diltiazem 125 MG in Sodium Chloride 0.9% 100 ML IVPB SCH (01:30)
[2019-11-20] MEDS: Piperacillin/Tazobactam 3.375 GM in Sodium Chloride 0.9% 100 ML IVPB SCH ×4 (02:50→21:19)
[2019-11-20] MEDS: Sodium Chloride 0.9% 1,000 ML IV SCH ×2 (05:07→15:45)
[2019-11-20] MEDS: Valproate Sodium 750 MG in Sodium Chloride 0.9% 100 ML IVPB SCH (05:08)
[2019-11-20 05:15] LABS: Lactic Acid 0.8 mmol/L (0.5-2.2)
[2019-11-20 05:17] LABS: Anion Gap 8 mmol/L (10-20); BUN (Urea Nitrogen) 7 mg/dL (8.9-20.6); Calc. Creatinine Clearance 144 mL/min (70-130); Calcium 7.6 mg/dL (7.8-10.44); Carbon Dioxide 31 mmol/L (22-29); Chloride 101 mmol/L (98-107); Estimated GFR-MDRD Greater than 90; Glucose 100 mg/dL (70-105); Magnesium 2.1 mg/dL (1.6-2.6); Potassium 3.7 mmol/L (3.5-5.1); Sodium 136 mmol/L (136-145)
[2019-11-20 05:20] LABS: Phosphorus 1.9 mg/dL (2.3-4.7)
[2019-11-20 05:35] LABS: Band 6 % (5-11); Hemoglobin 14.1 g/dL (14.0-18.0); Lymphocytes 18 % (21-51); MDiff Complete? YES; Mean Corpuscular HGB CONC 33.1 g/dL (32.0-36.0); Mean Corpuscular Hemoglobin 32.3 pg (27.0-31.0); Mean Corpuscular Volume 97.7 fL (78.0-98.0); Mean Platelet Volume 7.6 fL (7.4-10.4); Monocytes 9 % (0-10); Neutrophil 67 % (42-75); Platelet Count 187 thou/uL (130-400); Platelet Morphology Comment Appears Adequate; RBC Distribution Width 11.4 % (11.5-14.5); RBC Morphology Normal; Red Blood Cell (RBC) Count 4.38 mill/uL (4.70-6.10); White Blood Cell (WBC) Count 7.2 thou/uL (4.8-10.8)
[2019-11-20] MEDS: Diltiazem 125 MG in Sodium Chloride 0.9% 100 ML IVPB SCH ×2 (05:36→16:36)
--- NOTE | 2019-11-20 05:43 | CON ---
NEUROLOGY CONSULTATION DATE OF CONSULTATION: 11/19/2019 REASON FOR CONSULTATION: Breakthrough seizures. HISTORY OF PRESENT ILLNESS: Mr. Koenig is a 44-year-old male with medical history significant for profound mental retardation and developmental delay, presented from a senior living with [id number] breakthrough seizures. The patient is somnolent and nonverbal. The history is obtained from the caregiver and by review of the medical records. According to the caregiver, the patient has been stable on Keppra and valproic polytherapy but yesterday afternoon he started having frequent seizures , which were characterized by whole-body stiffening with jerking and left gaze preference, which last for about 30 seconds to a minute, which prompted them to bring him to the emergency room for further evaluation. In the emergency room, the patient was found to be tachypneic and chest x-ray revealed bibasilar infiltrates and there was a concern for aspiration pneumonia, so he was started on antibiotics and admitted to the floor for further management of seizures and pneumonia. REVIEW OF SYSTEMS: Unobtainable due to the patient's mental status, positive for seizures, mental retardation, and confusion. HOME MEDICATIONS: 1. Famotidine 20 mg p.o. daily. 2. Glycopyrrolate 2 mg daily. 3. Keppra 1000 mg twice daily. 4. Valproic acid 750 mg once daily. 5. Diazepam 12.5 mg rectal p.r.n. for seizure greater than 3 minutes. 6. Doxycycline. PAST MEDICAL HISTORY: 1. Profound mental retardation. 2. Cerebral palsy. 3. Spastic quadriparesis. 4. Blindness. 5. Seizure disorder. 6. Gastroparesis. 7. Allergic rhinitis. 8. Dysphagia. 9. Eczema. PAST SURGICAL HISTORY: Status post PEG tube placement. FAMILY HISTORY: No significant family history. SOCIAL HISTORY: He lives in a long-term facility, [facility]. ALLERGIES: Ceftriaxone - Exam General - other findings: altered mental status Eye: PERRL, anicteric sclera ENT: normocephalic atraumatic, no oropharyngeal lesions, moist mucosa Neck: supple, symmetric, no JVD, no thyromegaly, no lymphadenopathy, no carotid bruit Heart: no murmur, no gallops, no rubs, normal peripheral pulses Heart - other findings: tachycardic, regular Respiratory - other findings: +rales, tachypnea, no increased work of breathing Gastrointestinal: soft, non-tender, non-distended, normal bowel sounds, no palpable masses, no hepatomegaly, no splenomegaly, no bruit Extremities: no cyanosis, no clubbing, no edema Skin: normal turgor, no lesions, no rashes Neurological - Mental status; the patient is nonverbal. Does not follow commands or maintain eye contact. Cranial nerves; pupils are equal and reactive to light. Face is symmetric. Tongue is midline. Moves neck in both directions. Motor; muscle tone is increased, bulk is decreased. Spastic quadriparesis. Reflexes brisk bilaterally. Sensory, withdraws to nailbed pressure bilaterally. Cerebellar could not be assessed secondary to the patient's spastic quadriparesis and altered mental status. Gait deferred, unable to evaluate. 11/18/19 22:11 Lab results: WBC 10.7 thou/uL (4.8-10.8) 11/18/19 22:11 Hgb 15.9 g/dL (14.0-18.0) 11/18/19 22:11 Hct 46.1 % (42.0-52.0) 11/18/19 22:11 MCV 96.1 fL (78.0-98.0) 11/18/19 22:11 Plt Count 202 thou/uL (130-400) 11/18/19 22:11 Neutrophils % 81.9 % (42.0-75.0) H 11/18/19 22:11 Sodium 135 mmol/L (136-145) L 11/18/19 22:11 Potassium 4.0 mmol/L (3.5-5.1) 11/18/19 22:11 Chloride 103 mmol/L (98-107) 11/18/19 22:11 Carbon Dioxide 23 mmol/L (22-29) 11/18/19 22:11 BUN 11 mg/dL (8.9-20.6) 11/18/19 22:11 Creatinine 0.66 mg/dL (0.7-1.3) L 11/18/19 22:11 Glucose 152 mg/dL (70-105) H 11/18/19 22:11 Lactic Acid 2.3 mmol/L (0.5-2.2) H 11/19/19 00:56 Calcium 9.0 mg/dL (7.8-10.44) 11/18/19 22:11 Total Bilirubin 0.3 mg/dL (0.2-1.2) 11/18/19 22:11 AST 16 U/L (5-34) 11/18/19 22:11 ALT 12 U/L (8-55) 11/18/19 22:11 Alkaline Phosphatase 47 U/L (40-110) 11/18/19 22:11 Serum Total Protein 7.4 g/dL (6.0-8.3) 11/18/19 22:11 Albumin 4.3 g/dL (3.5-5.0) 11/18/19 22:11 ASSESSMENT AND PLAN: Mr. Koenig is a 44-year-old male with medical history significant for cerebral palsy, profound mental retardation, seizure disorder, on Keppra and valproic polytherapy, presented with presumed aspiration pneumonia, which resulted in breakthrough seizures. Provoked breakthrough seizures are secondary to underlying infection. N.p.o. at this time since the patient is very somnolent unless cleared by Speech. Increase Keppra dose to 1500 mg IV q.12, continue valproic 750 mg IV q.24 hours. Check valproic acid level. Ativan 2 mg IV for seizure greater than 3 minutes. Observe seizure precaution. Continue management of pneumonia per primary team. Speech consult to evaluate for dysphagia once the patient is more awake. Recommend EEG in a.m. to evaluate the interictal epileptiform discharges and see if further adjustment of medications is needed. DVT prophylaxis. GI prophylaxis. Neuro checks every 4 hours. Continue medical management per primary team. Consider head CT. We will continue to follow. Thank you for the consult. Job ID: [id number] MTDD
[2019-11-20] MEDS ORDERED: Sodium Phosphate 15 MMOL in Sodium Chloride 0.9% 250 ML 250 ML IVPB SCH (06:00)
[2019-11-20] MEDS: Famotidine/PF 20 mg/2ml Vial SLOW IVP SCH (09:20)
[2019-11-20] MEDS: Finasteride 5 MG TAB PO SCH (09:21)
[2019-11-20] MEDS: Acetaminophen 325 MG TAB PO PRN ×2 (09:22→21:19)
[2019-11-20] MEDS: Enoxaparin Sodium 40 MG/0.4 ML SYRINGE SC SCH (09:22)
[2019-11-20] MEDS: Polyethylene Glycol 3350 17 GM Packet PO SCH (09:22)
[2019-11-20] MEDS: levETIRAcetam 1,750 MG in Sodium Chloride 0.9% 100 ML IVPB SCH (09:22)
--- NOTE | 2019-11-20 13:00 | PDOC.HOSPP ---
- Subjective Encounter Date: 11/20/19 Subjective: NEUROLOGY PROGRESS NOTE Patient somnolent and multiple seizures reported during the last 24 hours. - Objective Vital Signs & Weight: Vital Signs (12 hours) Temp Pulse Resp BP Pulse Ox 11/20/19 11:51 100.3 F H 135 H 22 H 117/57 L 97 11/20/19 11:04 129 H 20 97 11/20/19 08:06 97.8 F 112 H 18 94/56 L 98 11/20/19 06:37 98 11/20/19 06:36 128 H 20 98 11/20/19 04:25 98.6 F 11/20/19 02:50 134 H 126/70 100 11/20/19 02:32 135 H 127/75 100 11/20/19 02:27 120 H 16 100 11/20/19 02:15 100.7 F H 126 H 16 100 Weight Admit Weight 132 lb 11.2 oz Weight 132 lb 11.2 oz I&O: 11/19/19 11/20/19 11/21/19 06:59 06:59 06:59 Intake Total 1547 Output Total 350 Balance 1197 Result Diagrams: 11/20/19 04:37 11/20/19 04:37 Radiology Reviewed by me: Yes EKG Reviewed by me: Yes Hospitalist ROS - Review of Systems ROS unobtainable: due to mental status Neurological: reports: weakness, numbness, incoordination, confusion, seizures - Medication Medications: Active Medications Generic Name Dose Route Start Last Admin Trade Name Freq PRN Reason Stop Dose Admin Acetaminophen 650 mg 11/19/19 02:19 11/20/19 09:22 Tylenol PO 650 mg Q4H PRN Administration Headache/Fever/Mild Pain (1-3) Acetaminophen 650 mg 11/19/19 11:20 11/20/19 02:18 Tylenol MS 650 mg Q4H PRN Administration Headache/Fever or Pain Albuterol/Ipratropium 3 ml 11/19/19 10:30 11/20/19 11:04 Duoneb NEB 3 ml [id number] JESUS Administration Enoxaparin Sodium 40 mg 11/19/19 09:00 11/20/19 09:22 Lovenox SC 40 mg 0900 JESUS Administration Famotidine 20 mg 11/19/19 09:00 11/20/19 09:20 Pepcid SLOW IVP 20 mg DAILY JESUS Administration Finasteride 5 mg 11/20/19 09:00 11/20/19 09:21 Proscar PO 5 mg DAILY JESUS Administration Piperacillin Sod/Tazobactam 100 mls @ 200 mls/hr 11/19/19 03:00 11/20/19 09: 20 Sod 3.375 gm/ Sodium Chloride IVPB 100 mls 0300,0900,1500,2100 JESUS Administration Sodium Chloride 1,000 mls @ 100 mls/hr 11/19/19 04:45 11/20/19 05:07 Normal Saline 0.9% IV 1,000 mls .Q10H JESUS Administration Diltiazem HCl 125 mg/ Sodium 125 mls @ 10 mls/hr 11/20/19 05:27 11/20/19 05: 36 Chloride IVPB 125 mls INF JESUS Administration Protocol 10 MG/HR Lorazepam 2 mg 11/19/19 02:07 11/20/19 00:22 Ativan SLOW IVP 2 mg Q15MIN PRN Administration Seizures Lorazepam 2 mg 11/19/19 02:18 11/19/19 06:50 Ativan SLOW IVP 2 mg Q20M PRN Administration Seizures Polyethylene Glycol 17 gm 11/19/19 09:00 11/20/19 09:22 Miralax PO 17 gm DAILY JESUS Administration Sodium Chloride 10 ml 11/19/19 09:00 11/20/19 09:22 Flush - Normal Saline IVF Not Given Q12HR JESUS Sodium Chloride 10 ml 11/19/19 01:48 11/20/19 00:24 Flush - Normal Saline IVF 10 ml PRN PRN Administration Saline Flush Tamsulosin HCl 0.4 mg 11/19/19 21:00 11/19/19 22:54 Flomax PO 0.4 mg HS JESUS Administration - Exam General Appearance: ill appearing Eye: PERRL ENT: normocephalic atraumatic Neck: supple Heart: RRR Respiratory: CTAB Gastrointestinal: soft Extremities: no cyanosis Skin: normal turgor Neurological: no new deficit Neurological - other findings: spastic quadriparesis Psychiatric: somnolent, lethargic Psychiatric - other findings: non-verbal Hosp A/P (1) Seizures Code(s): R56.9 - UNSPECIFIED CONVULSIONS Status: Chronic (2) Developmental delay, gross motor Code(s): F82 - SPECIFIC DEVELOPMENTAL DISORDER OF MOTOR FUNCTION Status: Acute (3) Nonverbal Code(s): R47.01 - APHASIA Status: Acute (4) Cerebral palsy Code(s): G80.9 - CEREBRAL PALSY, UNSPECIFIED Status: Chronic Qualifiers: Cerebral palsy type: spastic quadriplegic Qualified Code(s): G80.0 - Spastic quadriplegic cerebral palsy - Plan 44 year old with multiple breakthrough seizures secondary to infection. EEG ongoing. Will follow up on read. Increase Keppra to 200o mg IV q12. Depakote level 76. Increase VPA to 1000 mg q24 . Recheck level in AM. Target around 100. Ativan 2 mg IV for seizures greater than 3 mnutes. Observe seizure precautions. Head CT reviewed which was negative for acute intracranial pathology. Continue home medications. Continue antibiotics for aspiration pneumonia and medical management per primary team. Plan discussed with the primary attending Dr. Dc.
[2019-11-20] MEDS: levETIRAcetam 2,000 MG in Sodium Chloride 0.9% 100 ML IVPB SCH (13:28)
[2019-11-20] MEDS: Valproate Sodium 1,000 MG in Sodium Chloride 0.9% 100 ML IVPB SCH (14:52)
[2019-11-20] MEDS ORDERED: Lacosamide 400 MG in Sodium Chloride 0.9% 50 ML IVPB SCH (19:15)
--- NOTE | 2019-11-20 19:40 | CON ---
DATE OF CONSULTATION: 11/20/2019 REASON FOR CONSULTATION: Tachycardia. HISTORY OF PRESENT ILLNESS: Mr. Koenig is a 44-year-old man with profound developmental delay and mental retardation with a long history of seizure disorder, who now is having intractable seizures. He has also been tachycardic. He has been tried on Cardizem, but that is not controlling the heart rate. REVIEW OF SYSTEMS: Not obtainable. He is nonverbal. PAST HISTORY: As outlined above. SOCIAL HISTORY: He lives at the [facility] institution. He had also previously [employer]. PHYSICAL EXAMINATION: GENERAL: This is a 44-year-old gentleman, nonverbal, accompanied by his surveyor hydrographic. VITAL SIGNS: Blood pressure is 150 systolic, and the pulse is 130, sinus tachycardia on the monitor. NECK: Veins normal. Carotid, normal upstrokes. LUNGS: Some rhonchi, but no wheezing or rales. CARDIAC: Tachycardic. No murmur, rub, or gallop. ABDOMEN: Soft and nontender. EXTREMITIES: No clubbing or cyanosis. They are warm and dry. Feet are somewhat cool, but the ankles are warm. DIAGNOSTIC STUDIES: EKG reveals sinus tachycardia. ASSESSMENT: 1. Sinus tachycardia, not responding to Cardizem. 2. Hypertension. 3. Intractable seizures. 4. Mental retardation and developmental delay, severe. PLAN: 1. Stop Cardizem. 2. Change to beta blockers. 3. Once his heart rhythm is better, we can do an echocardiogram. Job ID: [id number]
[2019-11-20] MEDS: Metoprolol Tartrate 25 MG TAB PER TUBE SCH (21:20)
[2019-11-20] MEDS: Tamsulosin HCl 0.4 MG CAP PO SCH (21:20)
--- NOTE | 2019-11-20 23:14 | PDOC.HOSPP ---
- Subjective Encounter Date: 11/20/19 Encounter Time: 12:30 Subjective: Patient seen and examined for Sepsis/seizures. Overnight events noted - Objective Vital Signs & Weight: Vital Signs (12 hours) Temp Pulse Resp BP Pulse Ox 11/20/19 22:05 108 H 18 11/20/19 20:00 100.5 F H 131 H 16 131/85 97 11/20/19 16:00 99.2 F 121 H 20 123/66 95 11/20/19 15:23 119 H 20 93 L 11/20/19 11:51 100.3 F H 135 H 22 H 117/57 L 97 Weight Admit Weight 132 lb 11.2 oz Weight 132 lb 11.2 oz I&O: 11/19/19 11/20/19 11/21/19 06:59 06:59 06:59 Intake Total 1547 2327 Output Total 350 Balance 1197 2327 Result Diagrams: 11/20/19 04:37 11/20/19 04:37 Additional Labs: Laboratory Tests 11/20/19 04:37 Phosphorus 1.9 L Radiology Reviewed by me: Yes (CT brain - no bleed) EKG Reviewed by me: Yes (Tele ST) Hospitalist ROS - Review of Systems ROS unobtainable: due to mental status - Medication Medications: Active Medications Generic Name Dose Route Start Last Admin Trade Name Freq PRN Reason Stop Dose Admin Acetaminophen 650 mg 11/19/19 02:19 11/20/19 21:19 Tylenol PO 650 mg Q4H PRN Administration Headache/Fever/Mild Pain (1-3) Acetaminophen 650 mg 11/19/19 11:20 11/20/19 02:18 Tylenol [place] 650 mg Q4H PRN Administration Headache/Fever or Pain Albuterol/Ipratropium 3 ml 11/19/19 10:30 11/20/19 22:05 Duoneb NEB 3 ml [id number] JESUS Administration Enoxaparin Sodium 40 mg 11/19/19 09:00 11/20/19 09:22 Lovenox SC 40 mg 0900 JESUS Administration Famotidine 20 mg 11/19/19 09:00 11/20/19 09:20 Pepcid SLOW IVP 20 mg DAILY JESUS Administration Finasteride 5 mg 11/20/19 09:00 11/20/19 09:21 Proscar PO 5 mg DAILY JESUS Administration Piperacillin Sod/Tazobactam 100 mls @ 200 mls/hr 11/19/19 03:00 11/20/19 21: 19 Sod 3.375 gm/ Sodium Chloride IVPB 100 mls 0300,0900,1500,2100 JEUSS Administration Sodium Chloride 1,000 mls @ 100 mls/hr 11/19/19 04:45 11/20/19 15:45 Normal Saline 0.9% IV Not Given .Q10H JESUS Levetiracetam 2,000 mg/ Sodium 120 mls @ 201.429 mls/hr 11/20/19 13:00 13:28 Chloride IVPB 120 mls 0100,1300 JESUS Administration Valproic Acid 1,000 mg/ Sodium 110 mls @ 100 mls/hr 11/20/19 14:00 11/20/19 14:52 Chloride IVPB 110 mls Q24HR JESUS Administration Lorazepam 2 mg 11/19/19 02:07 11/20/19 13:53 Ativan SLOW IVP 2 mg Q15MIN PRN Administration Seizures Lorazepam 2 mg 11/19/19 02:18 11/19/19 06:50 Ativan SLOW IVP 2 mg Q20M PRN Administration Seizures Metoprolol Tartrate 25 mg 11/20/19 22:00 11/20/19 21:20 Lopressor PER TUBE 25 mg Q8HR JESUS Administration Polyethylene Glycol 17 gm 11/19/19 09:00 11/20/19 09:22 Miralax PO 17 gm DAILY JESUS Administration Sodium Chloride 10 ml 11/19/19 09:00 11/20/19 21:28 Flush - Normal Saline IVF 10 ml Q12HR JESUS Administration Sodium Chloride 10 ml 11/19/19 01:48 11/20/19 00:24 Flush - Normal Saline IVF 10 ml PRN PRN Administration Saline Flush Tamsulosin HCl 0.4 mg 11/19/19 21:00 11/20/19 21:20 Flomax PO 0.4 mg HS JESUS Administration - Exam General Appearance: NAD Neck: supple, no JVD Heart: RRR, no gallops, no rubs Heart - other findings: tachycardic Respiratory: no wheezes, no tachypnea, rales, rhonchi Gastrointestinal: non-tender, non-distended, normal bowel sounds, no palpable masses Extremities: no cyanosis, no clubbing Neurological - other findings: Neuro/Psych - cannot assess due to current mentation Hosp A/P - Plan DVT proph w/lovenox Intractable seizure h/o seizure disorder Severe sepsis due to Aspiration Pneumonia Lactic acidosis Sinus tachycardia MR Swallow dys on G tube feeding Hypophosphatemia PLAN: Increase Depakote Increase Keppra Cont IV Zosyn EEG Cont feeding Replace electrolytes Cont Cardizem drip AM labs CXR in AM
[2019-11-21] MEDS: Acetaminophen 325 MG TAB PO PRN ×3 (00:01→14:01)
[2019-11-21] MEDS: levETIRAcetam 2,000 MG in Sodium Chloride 0.9% 100 ML IVPB SCH ×2 (01:11→12:48)
[2019-11-21] MEDS: Sodium Chloride 0.9% 1,000 ML IV SCH ×3 (04:07→23:02)
[2019-11-21] MEDS: Piperacillin/Tazobactam 3.375 GM in Sodium Chloride 0.9% 100 ML IVPB SCH ×4 (04:07→23:00)
[2019-11-21 05:45] LABS: ALT (SGPT) 9 U/L (8-55); AST (SGOT) 16 U/L (5-34); Albumin 3.6 g/dL (3.5-5.0); Alkaline Phosphatase 48 U/L (40-110); Anion Gap 11 mmol/L (10-20); BUN (Urea Nitrogen) 10 mg/dL (8.9-20.6); Bilirubin, Total 0.4 mg/dL (0.2-1.2); Calc. Creatinine Clearance 146 mL/min (70-130); Carbon Dioxide 27 mmol/L (22-29); Chloride 107 mmol/L (98-107); Estimated GFR-MDRD Greater than 90; Globulin 2.5 g/dL (2.4-3.5); Glucose 91 mg/dL (70-105); Magnesium 2.4 mg/dL (1.6-2.6); Potassium 3.5 mmol/L (3.5-5.1); Protein, Total 6.1 g/dL (6.0-8.3); Sodium 141 mmol/L (136-145)
[2019-11-21 05:51] LABS: Phosphorus 1.6 mg/dL (2.3-4.7)
[2019-11-21 06:03] LABS: Band 11 % (5-11); Hemoglobin 14.6 g/dL (14.0-18.0); Lymphocytes 38 % (21-51); MDiff Complete? YES; Mean Corpuscular HGB CONC 33.1 g/dL (32.0-36.0); Mean Corpuscular Hemoglobin 32.5 pg (27.0-31.0); Mean Platelet Volume 7.8 fL (7.4-10.4); Monocytes 15 % (0-10); Neutrophil 36 % (42-75); Platelet Count 210 thou/uL (130-400); Platelet Morphology Comment Appears Adequate; RBC Distribution Width 11.7 % (11.5-14.5); Red Blood Cell (RBC) Count 4.49 mill/uL (4.70-6.10); White Blood Cell (WBC) Count 5.2 thou/uL (4.8-10.8)
[2019-11-21] MEDS: Metoprolol Tartrate 25 MG TAB PER TUBE SCH ×3 (06:17→23:00)
[2019-11-21] MEDS ORDERED: Sodium Phosphate 30 MMOL in Sodium Chloride 0.9% 250 ML 250 ML IVPB SCH (06:30)
--- NOTE | 2019-11-21 08:12 | RAD ---
Chest one view HISTORY: Pneumonia. Follow-up. COMPARISON: 11/18/2019. FINDINGS: Cardiac silhouette is magnified by projection and upper limits of normal in size. Mediastinum remains midline. Rightward convex curvature of the thoracic spine again demonstrated. Shallow inspiration accentuates pulmonary markings. Ill-defined parenchymal opacity at the lung bases is less pronounced than on the prior exam. No lobar consolidation or evidence of pneumothorax. Neural stimulator over the left upper chest and n emilia again demonstrated. color television console monitor leads overlie the chest. IMPRESSION : Slight interval improvement in aeration of the lung bases. Other findings are stable.
--- NOTE | 2019-11-21 09:14 | EEG ---
DATE OF SERVICE: 11/20/2019 ATTENDING PHYSICIAN: Dahiana Staton MD. This EEG was performed using 24-channel [email or web address] video digital EEG machine with 24-disk electrodes. This was an extended 6 hours 48 minutes of inpatient video EEG recording. Digital analysis of the EEG was done for spike and seizure detection, which revealed abnormalities. BACKGROUND: The posterior background rhythm was not observed. HYPERVENTILATION: Not performed. PHOTIC STIMULATION: No significant response seen with photic stimulation. SLEEP: Drowsiness and sleep are observed. SPELLS: The patient had multiple spells characterized by right gaze preference with head turned to the right and right upper extremity shaking associated with ictal correlate emanating from the left frontoparietal region. EEG DIAGNOSES: 1. Multiple electrographic seizures seen emanating from the left frontoparietal region. Occasional sharp waves seen in the above region. 2. Intermittent irregular theta activity seen throughout the recording, left greater than right. 3. Generalized irregular theta activity. 4. Absence of posterior background rhythm. 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 There is also evidence of moderate generalized nonspecific cerebral dysfunction. Multiple electrographic seizures captured during this recording. Job ID: [id number]
--- NOTE | 2019-11-21 09:27 | PDOC.HOSPP ---
- Subjective Encounter Date: 11/21/19 Encounter Time: 12:00 Subjective: Patient seen and examined for seizure. No new seizure. No overnight events - Objective Vital Signs & Weight: Vital Signs (12 hours) Temp Pulse Resp BP Pulse Ox 11/21/19 08:01 100.1 F H 111 H 18 130/85 94 L 11/21/19 06:51 92 L 11/21/19 06:49 107 H 20 92 L 11/21/19 04:00 99.8 F H 133 H 18 140/93 H 96 11/21/19 01:00 99.4 F 11/21/19 00:00 101.4 F H 136 H 16 127/83 94 L 11/20/19 22:05 108 H 18 Weight Admit Weight 132 lb 11.2 oz Weight 132 lb 11.2 oz I&O: 11/20/19 11/21/19 11/22/19 06:59 06:59 06:59 Intake Total 1547 3921 Output Total 350 Balance 1197 3921 Result Diagrams: 11/22/19 04:44 11/22/19 04:44 Additional Labs: Laboratory Tests 11/19/19 11/19/19 11/21/19 11:29 11:29 04:24 Phosphorus 1.6 L C-Reactive Protein TSH 3rd Generation 1.2282 Cortisol 22.00 11/21/19 04:24 Phosphorus C-Reactive Protein Less than 0.50 TSH 3rd Generation Cortisol Radiology Reviewed by me: Yes (CXR - some improvement) EKG Reviewed by me: Yes (Tele ST) Hospitalist ROS - Review of Systems ROS unobtainable: due to mental status - Medication Medications: Active Medications Generic Name Dose Route Start Last Admin Trade Name Freq PRN Reason Stop Dose Admin Acetaminophen 650 mg 11/19/19 02:19 11/21/19 00:01 Tylenol PO 650 mg Q4H PRN Administration Headache/Fever/Mild Pain (1-3) Acetaminophen 650 mg 11/19/19 11:20 11/20/19 02:18 Tylenol [place] 650 mg Q4H PRN Administration Headache/Fever or Pain Albuterol/Ipratropium 3 ml 11/19/19 10:30 11/21/19 06:49 Duoneb NEB 3 ml [id number] JESUS Administration Enoxaparin Sodium 40 mg 11/19/19 09:00 11/20/19 09:22 Lovenox SC 40 mg 0900 JESUS Administration Famotidine 20 mg 11/19/19 09:00 11/20/19 09:20 Pepcid SLOW IVP 20 mg DAILY JESUS Administration Finasteride 5 mg 11/20/19 09:00 11/20/19 09:21 Proscar PO 5 mg DAILY JESUS Administration Piperacillin Sod/Tazobactam 100 mls @ 200 mls/hr 11/19/19 03:00 11/21/19 04: 07 Sod 3.375 gm/ Sodium Chloride IVPB 100 mls 0300,0900,1500,2100 JESUS Administration Sodium Chloride 1,000 mls @ 100 mls/hr 11/19/19 04:45 11/21/19 04:07 Normal Saline 0.9% IV 1,000 mls .Q10H JESUS Administration Levetiracetam 2,000 mg/ Sodium 120 mls @ 201.429 mls/hr 11/20/19 13:00 01:11 Chloride IVPB 120 mls 0100,1300 JESUS Administration Valproic Acid 1,000 mg/ Sodium 110 mls @ 100 mls/hr 11/20/19 14:00 11/20/19 14:52 Chloride IVPB 110 mls Q24HR JESUS Administration Sodium Phosphate 30 mmol/ 260 mls @ 43.333 mls/hr 11/21/19 06:30 11/21/19 06: 59 Sodium Chloride IVPB 11/21/19 12:29 260 mls NOW JESUS Administration Lorazepam 2 mg 11/19/19 02:07 11/20/19 13:53 Ativan SLOW IVP 2 mg Q15MIN PRN Administration Seizures Lorazepam 2 mg 11/19/19 02:18 11/19/19 06:50 Ativan SLOW IVP 2 mg Q20M PRN Administration Seizures Metoprolol Tartrate 25 mg 11/20/19 22:00 11/21/19 06:17 Lopressor PER TUBE 25 mg Q8HR JESSU Administration Polyethylene Glycol 17 gm 11/19/19 09:00 11/20/19 09:22 Miralax PO 17 gm DAILY JESUS Administration Sodium Chloride 10 ml 11/19/19 09:00 11/20/19 21:28 Flush - Normal Saline IVF 10 ml Q12HR JESUS Administration Sodium Chloride 10 ml 11/19/19 01:48 11/20/19 00:24 Flush - Normal Saline IVF 10 ml PRN PRN Administration Saline Flush Tamsulosin HCl 0.4 mg 11/19/19 21:00 11/20/19 21:20 Flomax PO 0.4 mg HS JESUS Administration - Exam General Appearance: NAD Heart: RRR, no gallops Respiratory: no wheezes, no ronchi Gastrointestinal: non-tender, non-distended, normal bowel sounds Extremities: no cyanosis Hosp A/P - Plan DVT proph w/SCDs Intractable seizure -AED dose increased -Vimpat started 11/19 h/o seizure disorder Severe sepsis due to Aspiration Pneumonia -on IV Zosyn Lactic acidosis Sinus tachycardia -s/p Cardizem drip -on BB Ment Retardation/Cerebral palsy Swallow dys on G tube feeding Hypophosphatemia/Hypokalemia PLAN: Replace Phosphorus/Potassium Cont Depakote/Keppra/Vimpat Cont IV Zosyn EEG pending Cont feeding AM labs
[2019-11-21] MEDS: Enoxaparin Sodium 40 MG/0.4 ML SYRINGE SC SCH (09:55)
[2019-11-21] MEDS: Famotidine/PF 20 mg/2ml Vial SLOW IVP SCH (09:55)
[2019-11-21] MEDS: Polyethylene Glycol 3350 17 GM Packet PO SCH (09:55)
[2019-11-21] MEDS: Finasteride 5 MG TAB PO SCH (09:55)
--- NOTE | 2019-11-21 10:09 | PRG ---
DATE OF SERVICE: 11/21/2019 SUBJECTIVE: Mr. Koenig is getting an EEG today. The patient is nonverbal as is his baseline. OBJECTIVE: VITAL SIGNS: His blood pressure is 130/80, pulse is 100 to 110 and sinus. LUNGS: Clear. CARDIAC: Tachycardiac for rest. ASSESSMENT: 1. Sinus tachycardia. 2. Intractable seizures. PLAN: Continue beta blockers responding well to these. If the heart rate slows down, the beta blockers could be reduced to metoprolol tartrate 25 mg twice a day. We will sign off at this point. Job ID: [id number]
--- NOTE | 2019-11-21 11:09 | PDOC.HOSPP ---
- Subjective Encounter Date: 11/21/19 Subjective: NEUROLOGY PROGRESS NOTE Patient awake and nonverbal. No seizures overnight after initiation of vimpat to the current anticonvulsant regimen since last evening. Clinically improved. Mother at bedside. - Objective Vital Signs & Weight: Vital Signs (12 hours) Temp Pulse Resp BP Pulse Ox 11/21/19 10:50 132 H 20 88 L 11/21/19 08:01 100.1 F H 111 H 18 130/85 94 L 11/21/19 06:51 92 L 11/21/19 06:49 107 H 20 92 L 11/21/19 04:00 99.8 F H 133 H 18 140/93 H 96 11/21/19 01:00 99.4 F 11/21/19 00:00 101.4 F H 136 H 16 127/83 94 L Weight Admit Weight 132 lb 11.2 oz Weight 132 lb 11.2 oz I&O: 11/20/19 11/21/19 11/22/19 06:59 06:59 06:59 Intake Total 1547 3921 317 Output Total 350 Balance 1197 3921 317 Result Diagrams: 11/21/19 04:24 11/21/19 04:24 Radiology Reviewed by me: Yes EKG Reviewed by me: Yes Hospitalist ROS - Review of Systems ROS unobtainable: due to mental status (non-verbal) - Medication Medications: Active Medications Generic Name Dose Route Start Last Admin Trade Name Freq PRN Reason Stop Dose Admin Acetaminophen 650 mg 11/19/19 02:19 11/21/19 09:55 Tylenol PO 650 mg Q4H PRN Administration Headache/Fever/Mild Pain (1-3) Acetaminophen 650 mg 11/19/19 11:20 11/20/19 02:18 Tylenol [place] 650 mg Q4H PRN Administration Headache/Fever or Pain Albuterol/Ipratropium 3 ml 11/19/19 10:30 11/21/19 10:50 Duoneb NEB 3 ml [id number] JESUS Administration Enoxaparin Sodium 40 mg 11/19/19 09:00 11/21/19 09:55 Lovenox SC 40 mg 0900 JESUS Administration Famotidine 20 mg 11/19/19 09:00 11/21/19 09:55 Pepcid SLOW IVP 20 mg DAILY JESUS Administration Finasteride 5 mg 11/20/19 09:00 11/21/19 09:55 Proscar PO 5 mg DAILY JESUS Administration Piperacillin Sod/Tazobactam 100 mls @ 200 mls/hr 11/19/19 03:00 11/21/19 09: 55 Sod 3.375 gm/ Sodium Chloride IVPB 100 mls 0300,0900,1500,2100 JESUS Administration Sodium Chloride 1,000 mls @ 100 mls/hr 11/19/19 04:45 11/21/19 04:07 Normal Saline 0.9% IV 1,000 mls .Q10H JESUS Administration Levetiracetam 2,000 mg/ Sodium 120 mls @ 201.429 mls/hr 11/20/19 13:00 01:11 Chloride IVPB 120 mls 0100,1300 JESUS Administration Valproic Acid 1,000 mg/ Sodium 110 mls @ 100 mls/hr 11/20/19 14:00 11/20/19 14:52 Chloride IVPB 110 mls Q24HR JESUS Administration Sodium Phosphate 30 mmol/ 260 mls @ 43.333 mls/hr 11/21/19 06:30 11/21/19 06: 59 Sodium Chloride IVPB 11/21/19 12:29 260 mls NOW JESUS Administration Lorazepam 2 mg 11/19/19 02:07 11/20/19 13:53 Ativan SLOW IVP 2 mg Q15MIN PRN Administration Seizures Lorazepam 2 mg 11/19/19 02:18 11/19/19 06:50 Ativan SLOW IVP 2 mg Q20M PRN Administration Seizures Metoprolol Tartrate 25 mg 11/20/19 22:00 11/21/19 06:17 Lopressor PER TUBE 25 mg Q8HR JESUS Administration Polyethylene Glycol 17 gm 11/19/19 09:00 11/21/19 09:55 Miralax PO 17 gm DAILY JESUS Administration Sodium Chloride 10 ml 11/19/19 09:00 11/21/19 09:56 Flush - Normal Saline IVF Not Given Q12HR JESUS Sodium Chloride 10 ml 11/19/19 01:48 11/20/19 00:24 Flush - Normal Saline IVF 10 ml PRN PRN Administration Saline Flush Tamsulosin HCl 0.4 mg 11/19/19 21:00 11/20/19 21:20 Flomax PO 0.4 mg HS JESUS Administration - Exam General Appearance: awake alert Eye: PERRL ENT: normocephalic atraumatic Neck: supple Heart: RRR Respiratory: CTAB Gastrointestinal: soft Extremities: no cyanosis Skin: normal turgor Neurological: no new deficit Neurological - other findings: spastic quadriparesis Musculoskeletal: diffuse muscle atrophy (nonverbal) Hosp A/P (1) Seizures Code(s): R56.9 - UNSPECIFIED CONVULSIONS Status: Chronic (2) Developmental delay, gross motor Code(s): F82 - SPECIFIC DEVELOPMENTAL DISORDER OF MOTOR FUNCTION Status: Acute (3) Nonverbal Code(s): R47.01 - APHASIA Status: Acute (4) Cerebral palsy Code(s): G80.9 - CEREBRAL PALSY, UNSPECIFIED Status: Chronic Qualifiers: Cerebral palsy type: spastic quadriplegic Qualified Code(s): G80.0 - Spastic quadriplegic cerebral palsy - Plan plan discussed w/ family, DVT proph w/SCDs 44 year old with multiple breakthrough seizures secondary to infection. No seizures since last evening after the initiation of vimpat to the current anticonvulsant regimen. EEG on 11/20 reviewed and showed multiple seizures. Will repeat EEG today to reassess. Continue current anticonvulsant regimen. Keppra to 2000 mg IV q12. VPA to 1000 mg q24 Vimpat 200 mg IV q12. Ativan 2 mg IV for seizures greater than 3 mnutes. Observe seizure precautions. Head CT reviewed which was negative for acute intracranial pathology. Continue home medications. Continue antibiotics for aspiration pneumonia and medical management per primary team. Plan discussed with the patient's mother and the floor team during MDR rounds.
[2019-11-21] MEDS: Lacosamide 200 MG in Sodium Chloride 0.9% 50 ML IVPB SCH ×2 (11:31→23:00)
[2019-11-21] MEDS ORDERED: Metoprolol Tartrate 5 MG/5 ML VIAL IVP SCH (13:12)
[2019-11-21] MEDS: Valproate Sodium 1,000 MG in Sodium Chloride 0.9% 100 ML IVPB SCH (13:51)
[2019-11-21] MEDS: Tamsulosin HCl 0.4 MG CAP PO SCH (23:00)
[2019-11-22] MEDS: levETIRAcetam 2,000 MG in Sodium Chloride 0.9% 100 ML IVPB SCH (01:50)
[2019-11-22] MEDS: Piperacillin/Tazobactam 3.375 GM in Sodium Chloride 0.9% 100 ML IVPB SCH ×3 (04:00→15:23)
[2019-11-22 05:05] LABS: ALT (SGPT) 11 U/L (8-55); AST (SGOT) 17 U/L (5-34); Albumin 3.3 g/dL (3.5-5.0); Alkaline Phosphatase 42 U/L (40-110); Anion Gap 9 mmol/L (10-20); BUN (Urea Nitrogen) 8 mg/dL (8.9-20.6); Bilirubin, Total 0.4 mg/dL (0.2-1.2); Calc. Creatinine Clearance 139 mL/min (70-130); Calcium 7.7 mg/dL (7.8-10.44); Carbon Dioxide 25 mmol/L (22-29); Chloride 107 mmol/L (98-107); Estimated GFR-MDRD Greater than 90; Globulin 2.4 g/dL (2.4-3.5); Glucose 144 mg/dL (70-105); Potassium 3.3 mmol/L (3.5-5.1); Protein, Total 5.7 g/dL (6.0-8.3); Sodium 138 mmol/L (136-145)
[2019-11-22 05:11] LABS: Phosphorus 2.1 mg/dL (2.3-4.7)
[2019-11-22] MEDS: Metoprolol Tartrate 25 MG TAB PER TUBE SCH ×2 (05:15→12:54)
[2019-11-22 05:25] LABS: Band 1 % (5-11); Eosinophils 1 % (0-10); Hemoglobin 13.4 g/dL (14.0-18.0); Hypochromia SLIGHT = 6-15 cells (100X) (0-5/hpf); Lymphocytes 22 % (21-51); MDiff Complete? YES; Mean Corpuscular Hemoglobin 33.2 pg (27.0-31.0); Mean Corpuscular Volume 97.8 fL (78.0-98.0); Mean Platelet Volume 7.2 fL (7.4-10.4); Monocytes 11 % (0-10); Neutrophil 65 % (42-75); Platelet Count 207 thou/uL (130-400); Platelet Morphology Comment Appears Adequate; RBC Distribution Width 11.6 % (11.5-14.5); Red Blood Cell (RBC) Count 4.03 mill/uL (4.70-6.10); White Blood Cell (WBC) Count 5.3 thou/uL (4.8-10.8)
[2019-11-22 07:37] VITALS: BP 124/72
[2019-11-22] MEDS: Famotidine/PF 20 mg/2ml Vial SLOW IVP SCH (08:27)
--- NOTE | 2019-11-22 09:12 | EEG ---
DATE OF SERVICE: 11/21/2019 ATTENDING PHYSICIAN: Dahiana Staton MD. This EEG was performed using 24-channel [employer] video digital EEG machine with 24- disk electrodes. This was an extended 6-hour 35-minute of inpatient video EEG recording. Digital analysis of the EEG was done for spike and seizure detection, which revealed no abnormalities. BACKGROUND: The posterior background rhythm was not observed. HYPERVENTILATION: Not performed. PHOTIC STIMULATION: No significant response seen during photic stimulation. SLEEP: Drowsiness and sleep were observed. SPELLS: None EEG DIAGNOSIS: 1. Rare sharp waves seen in the left frontoparietal region. 2. Intermittent irregular theta activity seen throughout the recording, left greater than right. 3. Generalized irregular theta activity. 4. Absence of posterior background rhythm. CLINICAL INTERPRETATION: This EEG is consistent with interictal expression of epilepsy with potential epileptogenicity in the left frontoparietal region in the setting of older cerebral dysfunction in the same region. There is also evidence of moderate generalized nonspecific cerebral dysfunction. No electrographic seizures were captured during this recording. There is marked interval improvement since the prior study. Job ID: [id number] [facility]
[2019-11-22] MEDS: Polyethylene Glycol 3350 17 GM Packet PO SCH (09:54)
[2019-11-22] MEDS: Lacosamide 200 MG in Sodium Chloride 0.9% 50 ML IVPB SCH (09:55)
[2019-11-22] MEDS: Finasteride 5 MG TAB PO SCH (09:56)
[2019-11-22] MEDS: Enoxaparin Sodium 40 MG/0.4 ML SYRINGE SC SCH (09:56)
[2019-11-22] MEDS ORDERED: PHOS-NAK 1 PKT PACK PO SCH (10:15)
[2019-11-22 11:48] VITALS: TEMP 97.2
[2019-11-22] MEDS: Sodium Chloride 0.9% 1,000 ML IV SCH (11:51)
--- NOTE | 2019-11-22 11:54 | PDOC.HOSPP ---
- Subjective Encounter Date: 11/22/19 Subjective: NEUROLOGY PROGRESS NOTE Patient awake and nonverbal. No seizures since the last 48 hours. Clinically improved. - Objective Vital Signs & Weight: Vital Signs (12 hours) Temp Pulse Resp BP Pulse Ox 11/22/19 11:36 97.2 F L 11/22/19 10:33 105 H 20 98 11/22/19 07:36 98.5 F 112 H 20 124/72 95 11/22/19 06:50 95 11/22/19 06:46 66 16 95 11/22/19 03:56 99.3 F 119 H 16 134/87 97 11/22/19 02:30 96 20 Weight Admit Weight 132 lb 11.2 oz Weight 132 lb 11.2 oz I&O: 11/21/19 11/22/19 11/23/19 06:59 06:59 06:59 Intake Total 4221 4463 237 Balance 4221 4463 237 Result Diagrams: 11/22/19 04:44 11/22/19 04:44 Radiology Reviewed by me: Yes EKG Reviewed by me: Yes Hospitalist ROS - Review of Systems ROS unobtainable: due to mental status (non-verbal) - Medication Medications: Active Medications Generic Name Dose Route Start Last Admin Trade Name Freq PRN Reason Stop Dose Admin Acetaminophen 650 mg 11/19/19 02:19 11/21/19 14:01 Tylenol PO 650 mg Q4H PRN Administration Headache/Fever/Mild Pain (1-3) Acetaminophen 650 mg 11/19/19 11:20 11/20/19 02:18 Tylenol [place] 650 mg Q4H PRN Administration Headache/Fever or Pain Albuterol/Ipratropium 3 ml 11/19/19 10:30 11/22/19 10:33 Duoneb NEB 3 ml [id number] JESUS Administration Enoxaparin Sodium 40 mg 11/19/19 09:00 11/22/19 09:56 Lovenox SC 40 mg 0900 JESUS Administration Famotidine 20 mg 11/19/19 09:00 11/22/19 08:27 Pepcid SLOW IVP 20 mg DAILY JESUS Administration Finasteride 5 mg 11/20/19 09:00 11/22/19 09:56 Proscar PO 5 mg DAILY JESUS Administration Piperacillin Sod/Tazobactam 100 mls @ 200 mls/hr 11/19/19 03:00 11/22/19 08: 26 Sod 3.375 gm/ Sodium Chloride IVPB 100 mls 0300,0900,1500,2100 JESUS Administration Sodium Chloride 1,000 mls @ 100 mls/hr 11/19/19 04:45 11/21/19 23:02 Normal Saline 0.9% IV 1,000 mls .Q10H JESUS Administration Levetiracetam 2,000 mg/ Sodium 120 mls @ 201.429 mls/hr 11/20/19 13:00 01:50 Chloride IVPB 120 mls 0100,1300 JESUS Administration Valproic Acid 1,000 mg/ Sodium 110 mls @ 100 mls/hr 11/20/19 14:00 11/21/19 13:51 Chloride IVPB 110 mls Q24HR JESUS Administration Lacosamide 200 mg/ Sodium 70 mls @ 140 mls/hr 11/21/19 09:00 11/22/19 09:55 Chloride IVPB 70 mls BID JESUS Administration Lorazepam 2 mg 11/19/19 02:18 11/19/19 06:50 Ativan SLOW IVP 2 mg Q20M PRN Administration Seizures Metoprolol Tartrate 25 mg 11/20/19 22:00 11/22/19 05:15 Lopressor PER TUBE 25 mg Q8HR JESUS Administration Polyethylene Glycol 17 gm 11/19/19 09:00 11/22/19 09:54 Miralax PO Not Given DAILY JESUS Sodium Chloride 10 ml 11/19/19 09:00 11/22/19 09:56 Flush - Normal Saline IVF 10 ml Q12HR JESUS Administration Sodium Chloride 10 ml 11/19/19 01:48 11/20/19 00:24 Flush - Normal Saline IVF 10 ml PRN PRN Administration Saline Flush Tamsulosin HCl 0.4 mg 11/19/19 21:00 11/21/19 23:00 Flomax PO 0.4 mg HS JESUS Administration - Exam General Appearance: awake alert Eye: PERRL ENT: normocephalic atraumatic Neck: supple Heart: RRR Respiratory: CTAB Gastrointestinal: soft Extremities: no cyanosis Skin: normal turgor Neurological: no new deficit, speech deficit Neurological - other findings: non verbal , spastic quadriparesis Musculoskeletal: diffuse muscle atrophy Psychiatric: not oriented Psychiatric - other findings: non-verbal Hosp A/P (1) Seizures Code(s): R56.9 - UNSPECIFIED CONVULSIONS Status: Chronic (2) Developmental delay, gross motor Code(s): F82 - SPECIFIC DEVELOPMENTAL DISORDER OF MOTOR FUNCTION Status: Acute (3) Nonverbal Code(s): R47.01 - APHASIA Status: Acute (4) Cerebral palsy Code(s): G80.9 - CEREBRAL PALSY, UNSPECIFIED Status: Chronic Qualifiers: Cerebral palsy type: spastic quadriplegic Qualified Code(s): G80.0 - Spastic quadriplegic cerebral palsy - Plan 44 year old with multiple breakthrough seizures secondary to infection. No seizures since the last 48 hours. Repeat EEG reviewed which showed interval improvement with no seizures both electrographically and clinically. Continue current anticonvulsant regimen. Keppra to 2000 mg BID per PEG tube. VPA to 1000 mg QD per PEG tube. Vimpat 200 mg BID per PEG tube. Ativan 2 mg IV for seizures greater than 3 mInutes. Observe seizure precautions. Head CT reviewed which was negative for acute intracranial pathology. Continue home medications. Continue antibiotics for aspiration pneumonia and medical management per primary team. Plan discussed with the primary attending Dr. Dc and the floor team during MDR rounds.
[2019-11-22] MEDS ORDERED: levETIRAcetam 500 mg/5 ml Oral Solution PO SCH ×2 (12:30→21:00)
[2019-11-22] MEDS ORDERED: Lorazepam 1 MG TAB PER TUBE SCH (12:30)
[2019-11-22] MEDS ORDERED: Valproate Sodium 250 mg/5 ml UD Cup PO SCH (14:15)
[2019-11-22] MEDS ORDERED: PHOS-NAK 1 PKT PACK PER TUBE SCH (17:00)
--- NOTE | 2019-11-22 17:53 | EKG ---
Test Reason : STAT Blood Pressure : / mmHG Vent. Rate : 132 BPM Atrial Rate : 264 BPM P-R Int : 000 ms QRS Dur : 088 ms QT Int : 282 ms P-R-T Axes : 033 038 039 degrees QTc Int : 417 ms Atrial flutter with 2:1 A-V conduction Nonspecific T wave abnormality Abnormal ECG When compared with ECG of 18-NOV-2019 21:42, Atrial flutter has replaced Sinus rhythm Inverted T waves have replaced nonspecific T wave abnormality in Anterior leads Confirmed by RAJAN TRAVIS (2) on 11/22/2019 5:53:16 PM Referred By: Zenobia SHEETS Confirmed By:RAJAN TRAVIS
[2019-11-22] MEDS ORDERED: Clobazam [Onfi] 20 MG PER TUBE SCH (21:00)
[2019-11-23] MEDS ORDERED: Clobazam [Onfi] 20 MG PER TUBE SCH (09:00)
--- NOTE | 2019-11-23 11:02 | DIS ---
DATE OF ADMISSION: 11/19/2019 DATE OF DISCHARGE: 11/22/2019 DISCHARGE DISPOSITION: [facility]. Basic metabolic profile after 1 week is recommended. Primary care physician advised to follow. Follow up with Neurology as outpatient. DISCHARGE MEDICATIONS: 1. Keppra 2000 mg b.i.d. 2. Valproic acid 1000 mg daily. 3. Vimpat 200 mg b.i.d. 4. Augmentin 400 mg 3 times daily. 5. Lopressor 25 mg q.8 hourly. 6. All other home medications were left unchanged. The patient was seen and examined on the day of discharge. BRIEF HOSPITAL COURSE: The patient is a 44-year-old male with developmental disability with seizure disorder, who presented to the hospital with altered mentation along with seizure. His workup was consistent with aspiration pneumonia along with intractable seizures. He was evaluated by Neurology and underwent several EEGs. His medications have been optimized per Neurology recommendation. IV antibiotics have been transitioned to oral. His mentation is at baseline at this time per caregiver. He also was evaluated by Cardiology due to persistent sinus tachycardia that improved with beta-ariel. FINAL DIAGNOSES: 1. Intractable seizure. 2. History of seizure disorder. 3. Severe sepsis due to aspiration pneumonia. 4. Lactic acidosis. 5. Sinus tachycardia requiring Cardizem drip. 6. Mental retardation/cerebral palsy. 7. Swallow dysfunction. 8. Hypokalemia. 9. Hypophosphatemia. 10. Lactic acidosis. 11. Severe sepsis. TIME SPENT: Time coordinating the discharge of this patient was 36 minutes. Job ID: [id number]
== END 2019-11-22 15:44 | DRG 871 ==
LOC: ERS 21:25 → 2SE 11-19 01:59
PROVIDERS: ADMIT Internal Medicine; ATTEND Internal Medicine
DX: A41.9 Sepsis, unspecified organism (principal); J69.0 Pneumonitis due to inhalation of food and vomit; G80.0 Spastic quadriplegic cerebral palsy; J18.9 Pneumonia, unspecified organism; G40.919 Epilepsy, unspecified, intractable, without status epilepticus; F73 Profound intellectual disabilities; E87.2 Acidosis; R65.20 Severe sepsis without septic shock; J30.9 Allergic rhinitis, unspecified; M81.0 Age-related osteoporosis without current pathological fracture; I34.0 Nonrheumatic mitral (valve) insufficiency; H54.8 Legal blindness, as defined in USA; K31.84 Gastroparesis; R13.10 Dysphagia, unspecified; E83.39 Other disorders of phosphorus metabolism; E87.6 Hypokalemia; Z79.899 Other long term (current) drug therapy; Z87.440 Personal history of urinary (tract) infections; Z93.1 Gastrostomy status
CPT/HCPCS: 36415; 70450; 71045; 80048; 80053; 80164; 81001; 82533; 83605; 83735; 84100; 84443; 84484; 85025; 86140; 87040; 93005; 93010; 94640; 94760; 95712; 95816; 95819; 95957; 96365; 96367; 96375; J0692; J1650; J1953; J2060; J2543; J3370; J3490; J7050; J7620; S0028

== ENCOUNTER 2022-08-06 07:09 | Day surgery (SDC) | payer MEDICARE, MEDICAID ==
[2022-08-05 10:35] VITALS: BMI 23.3
[2022-08-06] MEDS ORDERED: PHENYLEPHRINE-NS 100 MCG/ML 10 ML SYRINGE ONE (08:17)
[2022-08-06] MEDS ORDERED: PROPOFOL 200 MG/20 ML VIAL ONE (08:17)
== END 2022-08-06 10:23 ==
LOC: SDC 07:09
PROVIDERS: ATTEND Internal Medicine Gastroenterology
PROC: 0DBK8ZX Excision of Ascending Colon, Via Natural or Artificial Opening Endoscopic, Diagnostic (ICD-10-PCS; principal; 2022-08-06)
PROC: 0DBL8ZX Excision of Transverse Colon, Via Natural or Artificial Opening Endoscopic, Diagnostic (ICD-10-PCS; 2022-08-06)
PROC: 0DBN8ZX Excision of Sigmoid Colon, Via Natural or Artificial Opening Endoscopic, Diagnostic (ICD-10-PCS; 2022-08-06)
DX: Z12.11 Encounter for screening for malignant neoplasm of colon (principal); D12.2 Benign neoplasm of ascending colon; D12.3 Benign neoplasm of transverse colon; D12.5 Benign neoplasm of sigmoid colon; G47.33 Obstructive sleep apnea (adult) (pediatric); G82.50 Quadriplegia, unspecified; G40.909 Epilepsy, unspecified, not intractable, without status epilepticus; F73 Profound intellectual disabilities; Z80.0 Family history of malignant neoplasm of digestive organs; Z79.899 Other long term (current) drug therapy; Z88.1 Allergy status to other antibiotic agents
CPT/HCPCS: 88305; J2704